=== PATIENT | female | born 1955 | race Caucasian/White ===

== ENCOUNTER 2020-08-30 07:50 | Outpatient (REF) | payer OTHER, SELFPAY ==
[2020-08-30 11:14] LABS: Hematocrit 42.8 % (37-47); Hemoglobin 13.9 g/dl (12.0-16.0); Mean Corpuscular HGB Conc 32.5 g/dl (31.0-35.0); Mean Corpuscular Hemoglobin 32.3 pg (27.0-33.0); Mean Corpuscular Volume 99.3 fL (80-98); Mean Platelet Volume 11.2 fL (9.4-12.3); Platelet Count 280 X10*3/uL (160-400); Red Blood Count 4.31 X10*6/uL (4.20-5.50); Red Cell Distribution Width 11.8 % (11.0-16.0); White Blood Count 6.3 X10*3/uL (4.8-10.8)
[2020-08-30 12:00] LABS: Alanine Aminotransferase 16 U/L (0-31); Albumin Level 4.3 g/dL (3.5-5.0); Alkaline Phosphatase 51 U/L (39-117); Anion Gap 15 (12-20); Aspartate Amino Transferase 20 U/L (5-31); Bilirubin Total 0.8 mg/dL (0.0-1.0); Blood Urea Nitrogen 15 mg/dL (9-16); Calcium 9.1 mg/dL (8.4-10.2); Carbon Dioxide 26 mmol/L (22-29); Chloride 103 mmol/L (96-108); Cholesterol 198 mg/dL; Estimated Glomerular Filt Rate > 60; Glucose Fasting 92 mg/dL (60-99); HDL Cholesterol 61 mg/dL; LDL Cholesterol Calculated 121 mg/dl; Potassium 4.9 mmol/l (3.3-5.1); Sodium 139 mmol/L (135-145); Total Protein 7.4 g/dL (6.5-8.0); Triglycerides 84 mg/dL
[2020-08-30 12:11] LABS: Vitamin D 25-OH Total 25.6 ng/mL (>30)
== END 2020-08-30 07:51 | disposition home or self-care (01) ==
LOC: HO.MANLDS 07:50
PROVIDERS: PCP Internal Medicine; Visit Provider Internal Medicine
DX: I10 Essential (primary) hypertension (principal)
CPT/HCPCS: 36415; 80053; 80061; 82306; 85027

== ENCOUNTER 2022-06-26 13:32 | Outpatient (REF) | payer OTHER, SELFPAY ==
[2022-06-26 18:12] LABS: MANUAL DIFF FLAG NO
[2022-06-26 18:14] LABS: Basophils Absolute Auto 0.1 X10*3/uL (0.0-0.2); Eosinophils Absolute Auto 0.2 X10*3/uL (0.0-0.4); Eosinophils Percent Auto 1.7 % (0-4); Hematocrit 41.1 % (37.0-47.0); Hemoglobin 13.6 g/dl (12.0-16.0); Imm Gran Abs Auto 0.02 X10*3/uL (0.00-0.03); Imm Gran Pct Auto 0.2 % (0.0-0.4); Lymphocytes Absolute Auto 2.4 X10*3/uL (1.2-4.9); Lymphocytes Percent Auto 26.5 % (20-40); Mean Corpuscular HGB Conc 33.1 g/dl (31.0-35.0); Mean Corpuscular Hemoglobin 32.9 pg (27.0-33.0); Mean Corpuscular Volume 99.5 fL (80.0-98.0); Mean Platelet Volume 11.8 fL (9.4-12.3); Monocytes Absolute Auto 0.8 X10*3/uL (0.1-1.2); Monocytes Percent Auto 8.8 % (2-11); Neutrophils Absolute Auto 5.5 x10*3/uL (2.0-8.3); Neutrophils Percent Auto 61.8 % (45-73); Platelet Count 261 X10*3/uL (160-400); Red Blood Count 4.13 X10*6/uL (4.20-5.50); Red Cell Distribution Width 11.7 % (11.0-16.0); White Blood Count 8.9 X10*3/uL (4.8-10.8)
[2022-06-26 21:05] LABS: Alanine Aminotransferase 16 U/L (0-31); Albumin Level 4.5 g/dL (3.5-5.0); Alkaline Phosphatase 56 U/L (39-117); Anion Gap 17 (12-20); Aspartate Amino Transferase 20 U/L (5-31); Bilirubin Total 0.4 mg/dL (0.0-1.0); Blood Urea Nitrogen 18 mg/dL (9-16); Calcium 9.8 mg/dL (8.4-10.2); Carbon Dioxide 25 mmol/L (22-29); Chloride 103 mmol/L (96-108); Estimated Glomerular Filt Rate > 60; Glucose Random 83 mg/dL (60-115); Potassium 4.1 mmol/L (3.3-5.1); Sodium 141 mmol/L (135-145); Total Protein 7.5 g/dL (6.5-8.0)
[2022-06-26 21:26] LABS: Thyroid Stimulating Hormone 1.59 uIU/mL (0.32-4.0)
[2022-06-26 22:10] LABS: Free T4 (Free Thyroxine) 0.93 ng/dL (0.71-1.85)
== END 2022-06-26 13:33 | disposition home or self-care (01) ==
LOC: HO.MANLDS 13:32
PROVIDERS: Visit Provider Internal Medicine
DX: R63.4 Abnormal weight loss (principal)
CPT/HCPCS: 36415; 80053; 84439; 84443; 85025

== ENCOUNTER 2022-11-01 09:53 | Outpatient (REF) | payer BC, SELFPAY ==
[2022-11-01 11:25] LABS: MANUAL DIFF FLAG NO
[2022-11-01 11:54] LABS: Basophils Absolute Auto 0.1 X10*3/uL (0.0-0.2); Eosinophils Absolute Auto 0.2 X10*3/uL (0.0-0.4); Eosinophils Percent Auto 2.3 % (0-4); Hemoglobin 14.5 g/dl (12.0-16.0); Imm Gran Abs Auto 0.01 X10*3/uL (0.00-0.03); Imm Gran Pct Auto 0.1 % (0.0-0.4); Lymphocytes Absolute Auto 1.9 X10*3/uL (1.2-4.9); Lymphocytes Percent Auto 27.5 % (20-40); Mean Corpuscular Hemoglobin 32.8 pg (27.0-33.0); Mean Corpuscular Volume 99.5 fL (80.0-98.0); Mean Platelet Volume 11.5 fL (9.4-12.3); Monocytes Absolute Auto 0.7 X10*3/uL (0.1-1.2); Monocytes Percent Auto 9.8 % (2-11); Neutrophils Absolute Auto 4.1 x10*3/uL (2.0-8.3); Neutrophils Percent Auto 59.3 % (45-73); Platelet Count 259 X10*3/uL (160-400); Red Blood Count 4.42 X10*6/uL (4.20-5.50); Red Cell Distribution Width 11.9 % (11.0-16.0)
[2022-11-01 12:40] LABS: Alanine Aminotransferase 16 U/L (0-31); Albumin Level 4.5 g/dL (3.5-5.0); Alkaline Phosphatase 56 U/L (39-117); Anion Gap 12 (12-20); Aspartate Amino Transferase 20 U/L (5-31); Bilirubin Total 1.1 mg/dL (0.0-1.0); Blood Urea Nitrogen 15 mg/dL (9-16); Calcium 9.8 mg/dL (8.4-10.2); Carbon Dioxide 30 mmol/L (22-29); Chloride 101 mmol/L (96-108); Cholesterol 217 mg/dL; Estimated Glomerular Filt Rate 54; Glucose Random 94 mg/dL (60-115); HDL Cholesterol 68 mg/dL; LDL Cholesterol Calculated 128 mg/dl; Potassium 5.2 mmol/L (3.3-5.1); Sodium 138 mmol/L (135-145); Total Protein 7.5 g/dL (6.5-8.0); Triglycerides 105 mg/dL
[2022-11-01 12:43] LABS: Vitamin D 25-OH Total 19.3 ng/mL (>30)
== END 2022-11-01 09:54 | disposition home or self-care (01) ==
LOC: HO.MANLDS 09:53
PROVIDERS: Visit Provider Internal Medicine
DX: I10 Essential (primary) hypertension (principal); E55.9 Vitamin D deficiency, unspecified
CPT/HCPCS: 36415; 80053; 80061; 82306; 85025

== ENCOUNTER 2024-09-30 09:12 | Outpatient (REF) | payer BC, SELFPAY ==
--- OUTSIDE RECORDS SUMMARY | 2024-09-30 10:04 | XMS_ITS | Data Portability ---
Author Organization [facility] Address [address] [place] [address] Assessment Encounter Date Assessment Date Assessment LastModified by Organization Details LastModified Time 01/13/2022 01/13/2022 [id number] [place] [id number] (ADVISOR CONSULTANT) MDM MODERATE MUST MEET 2 OUT OF 3 ELEMENTS: PROBLEMS, DATA OR RISK ELEMENT 1: PROBLEMS ADDRESSED 1 OR MORE CHRONIC ILLNESS WITH EXACERBATION OR 2 OR MORE STABLE CHRONIC ILLNESSES OR 1 UNDIAGNOSED NEW PROBLEM OR 1 ACUTE ILLNESS W/SYMPTOMS OR 1 ACUTE COMPLICATED INJURY ELEMENT 2: DATA MUST MEET 1 OF 3 CATEGORIES CATEGORY 1: REVIEW OF PRIOR EXTERNAL NOTES, REVIEW OF RESULTS, ORDERING OF EACH TEST, ASSESSMENT REQUIRING INDEPENDENT HISTORIAN OR CATEGORY 2: INDEPENDENT INTERPRETATION OF TESTS BY ANOTHER PHYSICIAN OR SPECIALIST OR CATEGORY 3: DISCUSSION OF MGT OR TEST INTERPRETATION W/EXTERNAL PHYSICIAN OR SPECIALIST ELEMENT 3: RISK RISK OF COMPLICATIONS AND/OR MORBIDITY OR MORTALITY OF PATIENT MANAGEMENT PROVIDER MUST THOROUGHLY DOCUMENT EACH ELEMENT THAT IS COVERED Not available 01/13/2022 15:39:57 01/07/2024 01/07/2024 [id number] [place] [id number] (ADVISOR CONSULTANT) : MDM LOW MUST MEET 2 OF 3 ELEMENTS: PROBLEMS, DATA OR RISK ELEMENT 1: PROBLEMS ADDRESSED (LOW): 2 OR MORE SELF-LIMITED OR MINOR PROBLEMS OR 1 STABLE CHRONIC ILLNESS OR 1 ACUTE UNCOMPLICATED ILLNESS OR INJURY ELEMENT 2: DATA TO BE REVISED AND ANALYZED (LOW) MUST MEET 1 OF 2 CATEGORIES: CATEGORY 1. REVIEW OF PRIOR EXTERNAL NOTES/RESULTS, ORDERING OF TEST(S) CATEGORY 2. ASSESSMENT REQUIRING INDEPENDENT HISTORIAN(S) INCLUDE WHO THE HISTORIAN IS AND RELATION TO PT AND WHY PT IS UNABLE TO GIVE COMPLETE HISTORY ELEMENT 3: RISK (LOW) RISK OF COMPLICATIONS AND/OR MORBIDITY OR MORTALITY OF PATIENT MANAGEMENT PROVIDER MUST THOROUGHLY DOCUMENT ALL OF THE ELEMENTS COVERED Not available 01/07/2024 14:47:15 08/04/2024 08/04/2024 [id number] [place] [id number] (ADVISOR CONSULTANT) MDM MODERATE MUST MEET 2 OUT OF 3 ELEMENTS: PROBLEMS, DATA OR RISK ELEMENT 1: PROBLEMS ADDRESSED 1 OR MORE CHRONIC ILLNESS WITH EXACERBATION OR 2 OR MORE STABLE CHRONIC ILLNESSES OR 1 UNDIAGNOSED NEW PROBLEM OR 1 ACUTE ILLNESS W/SYMPTOMS OR 1 ACUTE COMPLICATED INJURY ELEMENT 2: DATA MUST MEET 1 OF 3 CATEGORIES CATEGORY 1: REVIEW OF PRIOR EXTERNAL NOTES, REVIEW OF RESULTS, ORDERING OF EACH TEST, ASSESSMENT REQUIRING INDEPENDENT HISTORIAN OR CATEGORY 2: INDEPENDENT INTERPRETATION OF TESTS BY ANOTHER PHYSICIAN OR SPECIALIST OR CATEGORY 3: DISCUSSION OF MGT OR TEST INTERPRETATION W/EXTERNAL PHYSICIAN OR SPECIALIST ELEMENT 3: RISK RISK OF COMPLICATIONS AND/OR MORBIDITY OR MORTALITY OF PATIENT MANAGEMENT PROVIDER MUST THOROUGHLY DOCUMENT EACH ELEMENT THAT IS COVERED Not available 08/04/2024 13:40:53 09/08/2024 09/08/2024 [id number] [place] [id number] (ADVISOR CONSULTANT) MDM MODERATE MUST MEET 2 OUT OF 3 ELEMENTS: PROBLEMS, DATA OR RISK ELEMENT 1: PROBLEMS ADDRESSED 1 OR MORE CHRONIC ILLNESS WITH EXACERBATION OR 2 OR MORE STABLE CHRONIC ILLNESSES OR 1 UNDIAGNOSED NEW PROBLEM OR 1 ACUTE ILLNESS W/SYMPTOMS OR 1 ACUTE COMPLICATED INJURY ELEMENT 2: DATA MUST MEET 1 OF 3 CATEGORIES CATEGORY 1: REVIEW OF PRIOR EXTERNAL NOTES, REVIEW OF RESULTS, ORDERING OF EACH TEST, ASSESSMENT REQUIRING INDEPENDENT HISTORIAN OR CATEGORY 2: INDEPENDENT INTERPRETATION OF TESTS BY ANOTHER PHYSICIAN OR SPECIALIST OR CATEGORY 3: DISCUSSION OF MGT OR TEST INTERPRETATION W/EXTERNAL PHYSICIAN OR SPECIALIST ELEMENT 3: RISK RISK OF COMPLICATIONS AND/OR MORBIDITY OR MORTALITY OF PATIENT MANAGEMENT PROVIDER MUST THOROUGHLY DOCUMENT EACH ELEMENT THAT IS COVERED Not available 09/08/2024 11:40:10 Plan of Treatment Reminders Order Date Submit Date Provider Last Modified By Organization Details Last Modified Time Details Appointments MEDICARE ANNUAL WELLNESS 2024 09:00A M DR BRIDGES Not available Not available Not available Lab None recorded. Referral None recorded. Procedures None recorded. Surgeries None recorded. Imaging US, echocardi ogram, transthor acic, complete, w/ color flow 2024 025 [facility], [address] [facility], [place], [address], 09/26/2024 10:07:10 Medication Orders halobetas ol propionat e 0.05 % topical cream 2023 024 [facility]/Pharmacy #[id number], [address] [place], [address], 08/04/2024 13:40:13 metoprolo l succinate ER 50 mg tablet,ex tended release 24 hr 2023 024 [facility]/Pharmacy #5, [address] [place], [address], 01/07/2024 14:50:31 Patient TargetsNo targets recorded. Patient Instructions Encounter Date Encounter Id Patient Instructions Last Modified By Organization Details Last Modified Time 01/13/2022 [id number] smoking cessatio n counseling, greater than 3 minutes up to 10 minutes* [email or web address] Not available 01/23/2022 09:13:25 History: Type of tobacco: {{Cigarettes Pipe Cigars Smokeless }} How many years? {{5 10 15 20 or more}} Packs per day: {{1 2 3}} Approx date of last quit attempt: {{1 2 3 4 5 Month s ago years ago}} Medication used in previous quit attempt: {{Patch Inhaler G um Lozenge Buprop ion Varenicline N one}} Readiness to Quit: {{Not interested in quitting Thinking about quitting at some point Ready to quit}} Assessment and Plan: Educational materials provided: {{Prescription quit smoking}} {{Patient specific education}} Counseled for second hand smoke Counseling notes: {{}} Counseling: Counseled for: {{3 to 10mins 10+mins}} Not available 01/13/2022 15:44:26 01/07/2024 [id number] palpitations: care instructions Not available 01/07/2024 14:47:48 Reason for Referral None Reported. Results Created Date Observation Date Name Description Value Unit Range Abnormal Flag Note LastModifiedBy Organization Detail LastModifiedTime 01/14/2001/13/2022 MAMMO , scree vinayak, digit al, bilat eral No observ ation record ed. BARCODE Not Available 2021 15:22:41 Result Notes None recorded. Problems Name Problem SNOMED Code Status Onset Date Resolution Date Notes Provider Name and Address Organization Details Recorded Time Anxiety 28831664 Active 2020 Not Available [facility] 3 12:35:23 Weight loss 50241062 Active 2021 Not Available [facility] 3 12:35:23 Osteopenia 857130467 Active 2017 Not Available [facility] 3 12:35:23 Hypertensi ve disorder 95100625 Active 2017 Not Available [facility] 3 12:35:23 Palpitatio ns 11790400 Active 2017 Not Available [facility] 3 12:35:23 Tobacco user 384962945 Active 2017 Not Available [facility] 3 12:35:23 Eczema 98426178 Active 2023 Buzz Bridges [address], [address], [facility] 4 13:38:38 Early systolic murmur 36985019 Active 2024 Buzz Bridges, DO [address] [place] [address], [phone], [facility] 5 11:40:24 Problem Notes None recorded. Procedures Surgical History None recorded. Imaging Results Imaging Date Name Status LastModified by Organiz ation Details LastModified Time 01/13/2022 MAMMO, screening, digital, bilateral completed BARCODE Information not available 01/13/2022 15:22:41 Procedure Notes None recorded. Medical Equipment None Reported. Allergies No known drug allergies Medications Name Sig Start Date Stop Date Status Note LastModified by Organization Details LastModified Time amoxicillin 500 mg capsule 02/10 completed Not Available Not Available Not Available metoprolol succinate ER 50 mg tablet,exte nded release 24 hr TAKE 1 TABLET BY MOUTH EVERY DAY active Not Available Not Available No t Available alclometaso ne 0.05 % topical cream APPLY TO AFFECTED AREAS ON FACE TWICE A DAY FOR 2 WEEKS. active Not Available Not Available No t Available lorazepam 0.5 mg tablet TAKE 1 TABLET BY MOUTH EVERY DAY NEEDED active Not Available Not Available No t Available triamcinolo ne acetonide 0.025 % topical cream 01/13 completed Not Available Not Available Not Available benzonatate 100 mg capsule Take 1 capsule 3 times a day by oral route for 10 days. 02/10 completed Not Available Not Available Not Available metoprolol tartrate 50 mg tablet 1 po bid 05/31 completed Not Available Not Available Not Available halobetasol propionate 0.05 % topical cream APPLY A THIN LAYER TO THE AFFECTED AREA(S) BY TOPICAL ROUTE ONCE DAILY DO NOT EXCEED 50 GRAMS PER WEEK OR 2 WEEKS DURATION active Not Available Not Available No t Available metoprolol succinate ER 25 mg tablet,exte nded release 24 hr Take 1 tablet every day by oral route. 02/10 completed Not Available Not Available Not Available alclometaso ne 0.05 % topical ointment APPLY TO AFFECTED AREAS ON FACE TWICE A DAY FOR 2 WEEKS. active Not Available Not Available No t Available methylpredn isolone 4 mg tablets in a dose pack 05/31 completed Not Available Not Available Not Available ketoconazol e 2 % topical cream APPLY TO AFFECTED AREAS OF FACE TWICE DAILY FOR 2 WEEKS. active Not Available Not Available No t Available amoxicillin 875 mg-potassiu m clavulanate 125 mg tablet 02/10 completed Not Available Not Available Not Available metoprolol tartrate 25 mg tablet take 1 tablet by mouth twice a day 02/10 completed Not Available Not Available Not Available chlorhexidi ne gluconate 0.12 % mouthwash 02/10 completed Not Available Not Available Not Available Vitamin D 1,000mg daily 11/08 completed Not Available Not Available Not Available Vitals Date Recorded Body height Heart rate Oxygen saturation Oxygen saturation in Arterial blood by Pulse oximetry Body mass index (BMI) Body weight Systolic blood pressure Diastolic blood pressure Provider Name and Address Organization Details Last Updated DateTime 2 160.02 cm 67 /min 99 % 99 % 23.4 kg/m2 23724.9 1 g 122 mm[Hg] 84 mm[Hg] Buzz Bridges, DO [address] [place], [address] [place] [address] Internal [facility] 2 15:08:30 Date Recorded Body height Body mass index (BMI) Body weight Heart rate Oxygen saturation Oxygen saturation in Arterial blood by Pulse oximetry Systolic blood pressure Diastolic blood pressure Provider Name and Address Organization Details Last Updated DateTime 3 160.02 cm 24.4 kg/m2 84800.6 7 g 61 /min 99 % 99 % 122 mm[Hg] 78 mm[Hg] Buzz Bridges DO [address] [place] [address], [phone], [facility] 3 15:49:24 Date Recorded Body weight Heart rate Oxygen saturation Oxygen saturation in Arterial blood by Pulse oximetry Systolic blood pressure Diastolic blood pressure Provider Name and Address Organization Details Last Updated DateTime 4 73664.2 9 g 74 /min 96 % 96 % 120 mm[Hg] 80 mm[Hg] Betty Humphrey [facility] 4 14:31:27 Date Recorded Body height Body mass index (BMI) Body weight Heart rate Oxygen saturation Oxygen saturation in Arterial blood by Pulse oximetry Systolic blood pressure Diastolic blood pressure Provider Name and Address Organization Details Last Updated DateTime 4 160.02 cm 25.5 kg/m2 08972.3 g 67 /min 99 % 99 % 128 mm[Hg] 82 mm[Hg] Washington Costa [facility] 4 13:29:46 Date Recorded Body height Body mass index (BMI) Body weight Heart rate Oxygen saturation Oxygen saturation in Arterial blood by Pulse oximetry Systolic blood pressure Diastolic blood pressure Provider Name and Address Organization Details Last Updated DateTime 5 160.02 cm 25.6 kg/m2 15278.7 4 g 65 /min 98 % 98 % 122 mm[Hg] 66 mm[Hg] Washington Costa [facility] 5 10:57:39 Social History Question Answer Notes LastModified by Organizat ion Details LastModified Time Tobacco Smoking Status Former Smoker 4-5 ciggs per day Buzz Bridges, [address] [place] [address], [phone], [facility] 05/31/2021 16:28:01 What Was The Date Of Your Most Recent Tobacco Screening? 09/08/2024 [email or web address] Information not available 09/08/2024 Do You Or Have You Ever Used Any Other Forms Of Tobacco Or Nicotine? No Information not available 11/08/2022 Sex: Unknown Functional Status None recorded. Mental Status None recorded. Family History Nothing Reported. Medical History No medical history recorded. Gynecological HistoryNo gynecological history recorded. Obstetrics History GPAL:G 0 P 0 0 0 0 Immunizations Vaccine Type Date Status Note Provider Nam e and Address Organization Details Recorded Time Influenza, split virus, quadrivalent, preservative 1 completed Buzz Bridges DO [address] [place] [address], [address], [facility] 05/31/2021 16:27:05 zoster, unspecified formulation 1 completed Buzz Bridges DO [address] [place] [address], [address], [facility] 05/31/2021 16:27:27 Influenza, adjuvanted, trivalent, PF 8 completed Karmen Smith [facility] 05/24/2018 16:46:46 influenza, unspecified formulation 3 completed Hina Murray [facility] 06/18/2023 09:04:40 SARS-COV-2 (COVID-19) vaccine, UNSPECIFIED 3 completed Hina Murray [facility] 06/18/2023 09:04:47 Influenza, split virus, quadrivalent, preservative 0 completed Marion Weeks [facility] 06/21/2020 16:18:10 COVID-19, mRNA, LNP-S, PF, 100 mcg/0.5mL dose or 50 mcg/0.25mL dose 1 [facility] 14:42:48 COVID-19, mRNA, LNP-S, PF, 100 mcg/0.5mL dose or 50 mcg/0.25mL dose 1 [facility] 14:42:56 Past Encounters Encounter ID Performer Location Encounter Start Date Encounter Closed Date Diagnosis/Indication Diagnosis SNOMED-CT Code Diagnosis ICD10 Code Diagnosis Note [id number] Buzz Borrero Yen [facility] [address] [facility] [address] 11/16/2017 13:29:14 11/16/2017 16:01:22 Hypertensive disorder 61415310 I10 stable overall doing well no major problems bps at home and work are good Tobacco user 977033742 Z 72.0 long discussion re tobacco use Osteopenia 448962808 M85 .9 coming up bone density in january 88697545 F41.9 [id number] Buzz Borrero Yen [facility] [address] [facility],[place] [address] 05/24/2018 16:17:34 05/27/2018 10:29:39 Tobacco user 782981924 Z72.0 long discussion re tobacco use Hypertensive disorder 38 757888 I10 stable overall doing well no major problems bps at home and work are good Upper resp iratory infection 92211535 J06.9 use tessalon [id number] Buzz Borrero Yen [facility] [address] [facility] [facility] [address] 02/10/2019 16:10:54 02/10/2019 17:19:27 Hypertensive disorder 76974818 I10 stable overall doing well no major problems bps at home and work are good will order some lab next visit Tobacco user 672097390 Z 72.0 long discussion re tobacco use not interested in quittin [id number] Buzz Gissell Bridges [facility] [address] [facility] [address] 09/16/2019 16:05:41 09/16/2019 16:41:26 Hypertensive disorder 28264760 I10 BP is well controlled w metoprolol Screening for malignant neoplasm of colon 598384057 Z12.11 Is due - will call them and see if she needs referral Insomnia 685571109 F51.0 9 Well controlled with loraz less than 1x/mo [id number] Buzz BishopBarry Bridges [facility] [address] [facility] [address],[place] [facility] [address] 06/21/2020 16:07:12 06/22/2020 08:59:03 Hypertensive disorder 62136686 I10 BP is well controlled w metoprolol Insomnia 520698674 F51.0 9 Well controlled with loraz less than 1x/mo Osteopenia 550828954 M85 .9 coming up bone density in january of 2021 cont vit d Screening for malignant neoplasm of colon 421909326 Z12.11 Is due - [id number] Buzz Bridges [facility] [address] [facility] [address] 05/31/2021 16:07:14 05/31/2021 16:52:24 Hypertensive disorder 27160729 I10 BP is well controlled w metoprolol Anxiety 24437370 F41.9 uses lorazepam occasional ly Insomnia 304902495 F51.0 9 Well controlled with loraz less than 1x/mo [id number] Buzz Bridges [facility] [address] [facility] [address] 01/13/2022 14:59:10 01/13/2022 17:02:48 Hypertensive disorder 11373739 I10 BP is well controlled w metoprolol Tobacco user 599394637 Z 72.0 long discussion re tobacco use not interested in quittin Anxiety 15493609 F41.9 uses lorazepam occasional ly but overall she is doing much better Active or passive immunization 504705168 Z23 patient advised she is due for tdap & shingles will get second [id number] Buzz Bridges [facility] Medicine [address] [facility] [address] 11/08/2022 15:17:57 11/08/2022 16:59:49 Hypertensive disorder 11487273 I10 BP is well controlled w metoprolol Active or passive immunization 079258569 Z23 patient advised she is due for tdap & shingles will get second Adult heal th examination 897832705 Z00.00 [id number] Buzz Bridges [facility] [address] [facility] [address],[place] [address] 01/07/2024 14:18:13 01/07/2024 14:57:47 Depression screening 791070652 Z13.31 PHQ9 NEGATIVE Hypertensive disorder 38 019588 I10 BP is well controlled w metoprolol Osteopenia 049528340 M85 .9 coming up bone density in january of 2021 cont vit d Palpitations 63438974 R0 0.2 asymptomat ic [id number] Buzz Bridges [facility] Medicine [address] [facility] [address],[place] [address] 08/04/2024 13:23:18 08/04/2024 13:46:54 Hypertensive disorder 44779315 I10 BP is well controlled w metoprolol Eczema 86112967 L30.9 on fingers [id number] Buzz Borrero Yen [facility] [address] [facility] [address],[place] [address] 09/08/2024 10:51:24 09/08/2024 11:54:40 Hypertensive disorder 57924453 I10 BP is well controlled w metoprolol Early systolic murmur 89 091340 R01.1 Health Concerns Section Related Observation LastModified by Organization Detai ls LastModified Time None Recorded Concern Status LastModified by Organization Details LastModified Time None Recorded Advance Directives Directive None Recorded Payers Encounter Date Sequence Insurance Name Policy Number Policy Moffett Covered Member ID Moffett Member ID Guarantor Name 01/13/2022 1 [place] [id number] Alta C Archambeault [id number] Alta Archambeault 11/08/2022 1 [place] [id number] Alta C Archambeault [id number] Alta Archambeault 01/07/2024 1 [place] PPO) [id number] Alta Archambeault [id number] Alta Archambeault 08/04/2024 1 [place]) [id number] Alta Archambeault [id number] Alta Archambeault 09/08/2024 1 [place]PO) [id number] [facility] Archambeault [id number] Alta [facility] Notes Date Note Type Note Provider Name and Address Organization Details Recorded Time 2 text/htm l Hypertension F/UReported bypatient.Medications:ta audrey medications as directed; no side effects from medication Lifestyle:regular exercise; limiting/avoiding salt; compliant with low salt diet Associated Symptoms:no dizziness; no lightheadedness; no chest pain; no shortness of breath; no palpitations; no edema; no calf pain with exertion; no headache here for rechk and is feeling well and not having any cp or sobsstill quit the tobacco and is sleeping okappetite okno cp \no prob with med Buzz Bridges [address], [address], [facility] 01/13/2022 15:44:59 3 text/htm l Annual WellnessReported bypatient.Diet and Nutrition:healthy diet Fracture Risk:no history of fractures; no recent explained fracture; no sudden unexplained fractures; no previous musculoskeletal injuries Physical Activity:exercises on a regular basis; recent increase in physical activity; good physical condition Additional Lifestyle Factors:no tobacco use; no alcohol intake; stopped drinking alcohol Depression Risk:never feels sad, empty, or tearful; no loss of interest in activities; no significant changes in weight; no sleep disturbances or insomnia; no agitation; no loss of energy; no feelings of worthlessness or guilt; no thoughts of suicide; no history of depression; no history of mood disorders Hearing:no loss of hearing Vision:no vision problemsNotes:doing well overall no major issuesbowels okbladder okno cp nosobappetite ok 'sleep Buzz Bridges DO [address] [place] [address], [address], [facility] 11/08/2022 16:30:52 4 text/htm l Care Management - HypertensionReported bypatient.Self Care:not under emotional stress Severity:symptoms are improving; does not interfere with daily activities Associated Symptoms:no dizziness; no lightheadedness; no chest pain; no shortness of breath; no palpitations; no edema; no calf muscle cramps; no blurred vision; no confusion; no headaches; no fatigueNotes:walking daily with the dog here for her med chk and relates that she is doing well and feels good except for right foot plantar fasciitisusing insertno palpitations no cp no sob bowelsbladder goodhas had recent ob gyn physician assistant exam all good bone density shows osteopinia and mammogram was negative taking ca with vit D Buzz Borrero Yen, DO [address] [place] [address], [address], [facility] 01/07/2024 14:52:21 4 text/htm l Care Management - HypertensionReported bypatient.Self Care:not under emotional stress Severity:symptoms are improving; does not interfere with daily activities Associated Symptoms:no dizziness; no lightheadedness; no chest pain; no shortness of breath; no palpitations; no edema; no calf muscle cramps; no blurred vision; no confusion; no headaches; no fatigue here for rechk and is doing good no major issues and has been having a prob with a rash on fingers of hands itchy scaly and uncomfortable Buzz Borrero Yen, DO [address] [place] [address], [address], [facility] 08/04/2024 13:45:20 5 text/htm l was told by ob gyn physician assistant that she had a systolic heart murmur and told her that it could lead to heart failure etc pt nervous about thisdoes not have any hemodynamic physical signs or symptomsno cp no sob Buzz Borrero Yen, DO [address] [place] [address], [address], [facility] 09/08/2024 11:45:53 OBGyn Episode No OBEpisode recorded.
--- OUTSIDE RECORDS SUMMARY | 2024-09-30 10:04 | XMS_ITS ---
Author Organization [facility] [employer] [facility] Address [address] [address] Care Team Providers Care Director Of Corporate Strategy Name Role Phone YOLI BRIDGES Primary Care Provider Nataly Coyle Unavailable [phone] Allergies No Known Allergies REASON FOR VISIT INTERVAL BREAST AND PELVIC Medications Medication SIG (Take, Route, Frequency, Duration) Notes Start Date End Date Status Vitamin C Active LORazepam 0.5MG 1 ORAL as needed 11/06/2013 Active Metoprolol Succinate 50MG 1 ORAL daily for -3 09/06 Active Social History Tobacco Use: Social History Observation Description Date Details (start date - stop date) Former Smoker NA - NA AUDIT-C (Standard) Question Answer Notes Did you have a drink contain ing alcohol in the past year? Yes How often did you have a dri nk containing alcohol in the past year? Never (0 point) How many drinks did you have on a typical day when you were drinking in the past year? 1 or 2 drinks (0 point) How often did you have six o r more drinks on one occasion in the past year? 2 to 3 times per week (3 points) Points 3 Interpretation Positive Tobacco Control (Standard) Question Answer Notes Tobacco use: Former smoker How long has it been since you last smoked? Grea ter than 10 years Vital Signs Temperature 97.4 degrees Fahrenheit 09/02/19 25 Blood pressure systolic 118 mm Hg 09/02/19 25 Blood pressure diastolic 72 mm Hg 025 Height 63 in 09/02/2024 Weight 136 lbs 09/02/2024 BMI 24.09 kg/m2 09/02/2024 Encounters Encounter Location Date Provider Diagnosis [facility] [employer] [address] 09/02/2024 Nataly Armenta Encounter for gynecological examination (general) (routine) with abnormal findings Z01.411 ; Encounter for screening mammogram for malignant neoplasm of breast Z12.31 ; Other specified disorders of bone density and structure, multiple sites M85.89 ; Postmenopausal atrophic vaginitis N95.2 and Dense breasts, unspecified R92.30 Assessments Encounter Date Diagnosis (ICD Code) Assessment Notes Treatment Notes Treatment Clinical Notes Section Notes 09/02/2024 Encounter for gynecological examination (general) (routine) with abnormal findings (ICD-10 - Z01.411) NO PAP TEST, INTERVAL VISIT. PAP TEST IN 2025. 09/02/2024 Encounter for screening mammogram for malignant neoplasm of breast (ICD-10 - Z12.31) 09/02/2024 Other specified disorders of bone density and structure, multiple sites (ICD-10 - M85.89) DISCUSSED OSTEOPENIA AND ITS IMPACT ON HER HEALTH. ADEQUATE CALCIUM AND VIT D. WEIGHT BEARING EXERCISES. REPEAT BMD IN 2025. 09/02/2024 Postmenopausal atrophic vaginitis (ICD-10 - N95.2) DISCUSSED FINDINGS, DX AND TX OPTIONS. PAT IS ASYMPTOMATIC. 09/02/2024 Dense breasts, unspecified (ICD-10 - R92.30) DISCUSSED DENSE BREASTS ON MAMMOGRAM AND ITS IMPLICATIONS. 3D MAMMOGRAMS WERE RECOMMENDED. Plan Of Treatment Treatment Notes Assessment Notes Encounter for gynecological examination (general) (routine) with abnormal findings NO PAP TEST, INTERVAL VISIT. PAP TEST IN 2025. Other specified disorders of bone density and structure, multiple sites DISCUSSED OSTEOPENIA AND ITS IMPACT ON HER HEALTH. ADEQUATE CALCIUM AND VIT D. WEIGHT BEARING EXERCISES. REPEAT BMD IN 2025. Postmenopausal atrophic vaginitis DISCUSSED FINDINGS, DX AND TX OPTIONS. PAT IS ASYMPTOMATIC. Dense breasts, unspecified DISCUSSED DENSE BREASTS ON MAMMOGRAM AND ITS IMPLICATIONS. 3D MAMMOGRAMS WERE RECOMMENDED. Pending Test Test Name Order Date BONE DENSITY 09/02/2024 MM Digital Mammo Screening 09/02/2024 Next Appt Details Follow Up: 1 Year, Reason: Provider Name:Nataly summers, 09/03/2025 09:20:00 AM, [address], [address], [place], [address], Progress Notes * JASMINE MCKEONDOB:[birth year] (69 yo F)Acc No.[id number]:09/02/2024 PROGRESS NOTES Patient:?KATIE MCKEON Appointment Provider:Yuri summers M.D. :1955???Age:69 Y???Sex:Female D ate:09/02/2024 Address:[address] [place], [place] [id number] Pcp:YOLI BRIDGES Subjective: * Chief Complaints: * ???INTERVAL BREAST AND PELVI C * HPI: ???New/Follow-up Patient Consult:? PAT ENTERED MENOPAUSE IN 2004.? SHE IS NOT SEXUALLY ACTIVE. HER LAST MAMMOGRAM DONE IN AUG 2024 SHOWED DENSE BREASTS AND WAS NORMAL.? HER LIFETIME BREAST CA RISK IS 5.4%. HER LAST PAP TEST IN 2021 WAS NEGATIVE AND HPV NEGATIVE.? SHE HAS NO HX OF ABNORMAL PAP TESTS. HER LAST BMD IN 2023 SHOWED OSTEOPENIA WITH LOWEST T-SCORE OF -2.2 AT THE SPINE.? THERE HAS BEEN NO CHANGE COMPARED TO HER BMD IN 2020.? FRAX=18%/1.8%. SHE HAD A COLONOSCOPY DONE IN 2011 AND COLOGUARD TESTING IN 2019. MODERNA X 2. * ROS:?general:?no?chest pain.?no?palpitations.?no?headache.?no?cough.?no?shortness of breath.?no?fever.?no?unexplained weight loss.?no?nausea/vomiting.?no?change in bowel movements.?no blood in stool.?no?genitourinary complaints.?no?skin complaints.? * Medical History:? 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 Control:?None.?Menopause: ?Began at age: ?52 ???Colonoscopy?Cologuard 06/2020, yes, no polyps, 2011.?Bone Density:?08/14/23, 04/21/21, 05/08/17.?RETIREMENT ACTUARY HISTORY MISC.?02/03/16 Dense Breast Letter 1 Mailed to Patient. Cynthia Score 5.4%.? * OB History:?Total pregnancies?1.?Total living children?1.?NVD?1.? * Surgical History:?Colonoscop y 2011 * Hospitalization/Major Diagno stic Procedure:?1 Vaginal Delivery * Family History:?Mother: dece ased 91 yrs, Kidney Disease, broke hip in her 70s, low impact fall.?Father: 79 yrs, Asthma.?1 brother(s) - healthy. .? : Prostate Cancer. * Social History:?Tobacco Use:?Tobacco Control (Standard)?Tobacco use:?Former smoker ?How long has it been since you last smoked??Greater than 10 years ???Sexual History:?Sexual History?Had sex in the past 12 months (vaginal, oral, or anal)?: No.?Details of Sexual History?Are you sexually active??No ???Drugs/Alcohol:?Drugs?Have you used drugs other than those for medical reasons in the past 12 months??No ???Miscellaneous:?Children: yes, 1. ?Domestic violence: no. ?Exercise: yes, walking. ?Home smoke detector use: yes. ?Living with: spouse. ?Marital status: . ?Natural support system: yes. ?Occupation: Works full-time. ?Sexual abuse: no. ?Sexually active: no, monogamous relationship. ?Verbal abuse: no. ???Drug/Alcohol:?AUDIT-C (Standard)?Did you have a drink containing alcohol in the past year??Yes ?How often did you have a drink containing alcohol in the past year??Never (0 point) ?How many drinks did you have on a typical day when you were drinking in the past year??1 or 2 drinks (0 point) ?How often did you have six or more drinks on one occasion in the past year??2 to 3 times per week (3 points) ?Points?3 ?Interpretation?Positive * Medications:?TakingVitamin C LORazepam 0.5MG 30TAB 1 ORAL as needed Metoprolol Succinate 50MG 30 1 ORAL daily Taking Vitamin C Taking LORazepam 0.5MG 30TAB 1 ORAL as needed Taking Metoprolol Succinate 50MG 30 1 ORAL daily DiscontinuedVitamin D 25 MCG (1000 UT) Tablet 1 tablet Orally Once a day , Notes to Pharmacist: 1200 IU'sMedication List reviewed and reconciled with the patientDiscontinued Vitamin D 25 MCG (1000 UT) Tablet 1 tablet Orally Once a day , Notes to Pharmacist: 1200 IU'sMedication List reviewed and reconciled with the patient * Allergies:?N.K.D.A.no[Allerg ies Verified] Objective: * Vitals:?Ht: 63 in, Wt: 136 l bs, BMI:24.09Index, BP: 118/72 mm Hg, Temp: 97.4 F. * Examination: ???General Examination: ?GENERAL APPEARANCE:?in no acute distress, well developed, well nourished.?BREASTS:?normal, no dimpling, no discharge, no drainage, no masses palpable bilaterally, nontender.?RETIREMENT ACTUARY exam: ?EXTERNAL GENITALIA:?Normal female. No lesions, erythema or discharge.?VAGINA:?atrophic changes.?CERVIX:?No cervical motion tenderness, discharge or lesions.?UTERUS:?normal size, shape and consistency, normal mobility, nontender.?ADNEXA:?no masses or tenderness bilaterally.? Assessment: * Assessment: 1.?Encounter for gynecologic al examination (general) (routine) with abnormal findings - Z01.411???2.?Encounter for screening mammogram for malignant neoplasm of breast - Z12.31???3.?Other specified disorders of bone density and structure, multiple sites - M85.89???4.?Postmenopausal atrophic vaginitis - N95.2???5.?Dense breasts, unspecified - R92.30??? Plan: * Treatment: 2.?Encounter for screening m ammogram for malignant neoplasm of breast?Imaging: MM Digital Mammo Screening 3.?Other specified disorders of bone density and structure, multiple sites?Imaging: BONE DENSITY Notes: DISCUSSED OSTEOPENIA AND ITS IMPACT ON HER HEALTH. ADEQUATE CALCIUM AND VIT D. WEIGHT BEARING EXERCISES. REPEAT BMD IN 2025.?? 4.?Postmenopausal atrophic v aginitis? Notes: DISCUSSED FINDINGS, DX AND TX OPTIONS. PAT IS ASYMPTOMATIC.?? 5.?Dense breasts, unspecifie d? Notes: DISCUSSED DENSE BREASTS ON MAMMOGRAM AND ITS IMPLICATIONS. 3D MAMMOGRAMS WERE RECOMMENDED.?? * Procedure Codes:? * Follow Up:?1 Year * Images: Billing Information: * Visit Code:? * Procedure Codes:? * Sign off status: Completed true * Appointment Provider:?Nataly Armenta M.D. Date:?09/02/2024 Generated for Tyrone kulkarni/Kevon/Manuelaitting on:?09/30/2024 10:04 AM EST History and Physical Notes * HPI (History of Present Illness) Category Sub-Category Detail Notes Category Not es New/Follow-up Patient Consult PAT ENTERED MENOPAUSE IN 2004. SHE IS NOT SEXUALLY ACTIVE. HER LAST MAMMOGRAM DONE IN AUG 2024 SHOWED DENSE BREASTS AND WAS NORMAL. HER LIFETIME BREAST CA RISK IS 5.4%. HER LAST PAP TEST IN 2021 WAS NEGATIVE AND HPV NEGATIVE. SHE HAS NO HX OF ABNORMAL PAP TESTS. HER LAST BMD IN 2023 SHOWED OSTEOPENIA WITH LOWEST T-SCORE OF -2.2 AT THE [facility]. THERE HAS BEEN NO CHANGE COMPARED TO HER BMD IN 2020. FRAX=18%/1.8%. SHE HAD A COLONOSCOPY DONE IN 2011 AND COLOGUARD TESTING IN 2019. MODERNA X 2. Examination Category Sub-Category Detail Notes Category Not es General Examination GENERAL APPEARANCE: in no ac hoh distress, well developed, well nourished BREASTS: normal, no dimpling, no discharge, no drainage, no masses palpable bilaterally, nontender RETIREMENT ACTUARY exam CERVIX: No cervical motion tendernes s, discharge or lesions VAGINA: atrophic changes EXTERNAL GENITALIA: Normal female. No le sions, erythema or discharge UTERUS: normal size, shape a nd consistency, normal mobility, nontender ADNEXA: no masses or tendern ess bilaterally
--- OUTSIDE RECORDS SUMMARY | 2024-09-30 10:04 | XMS_ITS | Continuity of Care Document ---
Author Organization [place] [facility], [facility] Address [address] [place] [address] [place] [address] Assessment Encounter Date Assessment Date Assessment LastModified by Organization Details LastModified Time 09/08/2024 09/08/[address] [id number] [place] [id number] (M[address]ICIPAL [address] JUDGE) MDM MODERATE MUST MEET 2 OUT OF [...] acic, complete, w/ color flow 2024 025 [facility] Scheduling, [address] [place] [address], [id number], 09/26/2024 10:07:10 Medication Orders None recorded. Patient TargetsNo targets recorded. Patient InstructionsNo instructions recorded. Reason for Referral None Reported. Problems Name Problem SNOMED Code Status Onset Date Resolution Date Notes Provider Name and Address Organization Details Recorded Time Anxiety 67216435 Active 2020 Not Available [facility] 3 12:35:23 Weight loss 40446522 Active 2021 Not Available [facility] 3 12:35:23 Osteopenia 875999078 Active 2017 Not Available [facility] 3 12:35:23 Hypertensi ve disorder 26642482 Active 2017 Not Available [facility] 3 12:35:23 Palpitatio ns 26406850 Active 2017 Not Available [facility] 3 12:35:23 Tobacco user 550109526 Active 2017 Not Available [facility] 3 12:35:23 Eczema 65227956 Active 2023 Buzz Bridges, [address], [address], [facility] 4 13:38:38 Early systolic murmur 78620361 Active 2024 [address] Bridges [address], [address], [facility] 5 11:40:24 Problem Notes None recorded. Medical Equipment None Reported. [...] Not Available Vitals Date Recorded Body height Body mass index (BMI) Body weight Heart rate Oxygen saturation Oxygen saturation in Arterial blood by Pulse oximetry Systolic blood pressure Diastolic blood pressure Provider Name and Address Organization Details Last Updated DateTime 5 160.02 cm 25.6 kg/m2 78692.7 4 g 65 /min 98 % 98 % 122 mm[Hg] 66 mm[Hg] Washington Costa [facility] 10:57:39 Social History Question Answer Notes LastModified by Organizat ion Details LastModified Time Tobacco Smoking Status Former Smoker 4-5 ciggs per day Buzz Bridges, DO [address] [facility], [place], [address], [facility] 05/31/2021 16:28:01 What Was [...] quadrivalent, preservative 1 completed Buzz Bridges DO [address] [place] [address], [address], [facility] 05/31/2021 16:27:05 zoster, unspecified formulation 1 completed Buzz Bridges DO [address] [place] [address], [phone], [facility] 05/31/2021 16:27:27 Influenza, adjuvanted, trivalent, PF 8 completed Karmen Smith [facility] 05/24/2018 16:46:46 influenza, unspecified formulation 3 completed Hina Murray [facility] 06/18/2023 09:04:40 SARS-COV-2 (COVID-19) vaccine, UNSPECIFIED 3 completed Hina Murray [facility] 06/18/2023 09:04:47 Influenza, split virus, quadrivalent, preservative 0 completed Marion Weeks [facility] 06/21/2020 16:18:10 COVID-19, mRNA, LNP-S, PF, 100 mcg/0.5mL dose or 50 mcg/0.25mL dose 1 [facility] 14:42:48 COVID-19, mRNA, LNP-S, PF, 100 mcg/0.5mL dose or 50 mcg/0.25mL dose 1 [facility] 14:42:56 Past Encounters Encounter ID Performer Location Encounter Start Date Encounter Closed Date Diagnosis/Indication Diagnosis SNOMED-CT Code Diagnosis ICD10 Code Diagnosis Note [id number] DO [facility] [address] [facility],[place] [address] 09/08/2024 10:51:24 09/08/2024 11:54:40 Hypertensive disorder 49976806 I10 BP is well controlled w metoprolol Early systolic murmur 89 076485 R01.1 Health Concerns Section Related Observation LastModified by Organization Detai ls LastModified Time None Recorded Concern Status LastModified by Organization Details LastModified Time None Recorded Payers Encounter Date Sequence Insurance Name Policy Number Policy Moffett Covered Member ID Moffett Member ID Guarantor Name 09/08/2024 1 [facility]: MEDICARE PPO BLUE (MEDICARE REPLACEMENT PPO) [id number] [facility] [id number] [facility] Notes Date Note Type Note Provider Name a mt Address Organization Details Recorded Time 09/08/2024 text/html was told by obstetrician gynecologist that she had a systolic heart murmur and told her that it could lead to heart failure etc pt nervous about thisdoes not have any hemodynamic physical signs or symptomsno cp no sob Buzz Brigdes DO [address] [facility], [place], [address], [facility] 09/08/2024 11:45:53 OBGyn Episode No OBEpisode recorded.
--- OUTSIDE RECORDS SUMMARY | 2024-09-30 10:04 | XMS_ITS ---
Author Organization [facility] Address [address] [place] [address] Care Team Providers Care Personal Shopper Name Role Phone CYRUS YOLI Primary Care Provider Nataly Coyle Unavailable [phone] Allergies No Known Allergies REASON FOR VISIT Annual SENIOR PRICING ANALYST Physical, Annual SENIOR PRICING ANALYST Physical 60-85+ Medications Medication SIG (Take, Route, Frequency, Duration) Notes Start Date End Date Status Vitamin D 25 MCG (1000 UT) 1 tablet Orally Once a day 1200 IU's Active LORazepam 0.5MG 1 ORAL as needed 11/06/2013 Active Metoprolol Succinate 50MG 1 ORAL daily for -3 09/21/2011 Active Social History Tobacco Use: Social History Observation Description Date Details (start date - stop date) Former Smoker NA - NA Tobacco Use/Smoking Question Answer Notes Are you a former smoker How long has it been since you last smoked? 1-5 years Alcohol Screen (Audit-C) Question Answer Notes Did you have a drink contain ing alcohol in the past year? Yes How often did you have a dri nk containing alcohol in the past year? 2 to 3 times a week (3 points) How many drinks did you have on a typical day when you were drinking in the past year? 1 or 2 drinks (0 point) Points 3 Interpretation Positive Vital Signs Temperature 97.9 degrees Fahrenheit 08/29/19 24 Blood pressure systolic 116 mm Hg 08/29/19 24 Blood pressure diastolic 80 mm Hg 024 Height 63 in 08/29/2023 Weight 135 lbs 08/29/2023 BMI 23.91 kg/m2 08/29/2023 Encounters Encounter Location Date Provider Diagnosis [facility] [address] [place] [address] 08/29/2023 Nataly Armenta Encounter for gynecological examination (general) (routine) without abnormal findings Z01.419 ; Encounter for screening mammogram for malignant neoplasm of breast Z12.31 ; Other specified disorders of bone density and structure, multiple sites M85.89 and Dense breasts, unspecified R92.30 Assessments Encounter Date Diagnosis (ICD Code) Assessment Notes Treatment Notes Treatment Clinical Notes Section Notes 08/29/2023 Encounter for gynecological examination (general) (routine) without abnormal findings (ICD-10 - Z01.419) NO PAP TEST, DUE IN 2025. 08/29/2023 Encounter for screening mammogram for malignant neoplasm of breast (ICD-10 - Z12.31) REGULAR MAMMOGRAMS AND SBE'S WERE RECOMMENDED. 08/29/2023 Other specified disorders of bone density and structure, multiple sites (ICD-10 - M85.89) DISCUSSED HER LATEST BMD RESULTS AND OSTEOPENIA AND REASSURED PAT THAT THERE HAS NOT BEEN ANY SIGNIFICANT CHANGE COMPARED TO HER BMD IN 2020. ADEQUATE CALCIUM AND VITD. WEIGHT BEARING EXERCISES. REPEAT BMD IN 2025. 08/29/2023 Dense breasts, unspecified (ICD-10 - R92.30) DISCUSSED DENSE BREASTS ON MAMMOGRAM AND ITS IMPLICATIONS. 3D MAMMOGRAMS WERE RECOMMENDED. Plan Of Treatment Treatment Notes Assessment Notes Encounter for gynecological examination (general) (routine) without abnormal findings NO PAP TEST, DUE IN 2025. Encounter for screening mamm ogram for malignant neoplasm of breast REGULAR MAMMOGRAMS AND SBE'S WERE RECOMMENDED. Other specified disorders of bone density and structure, multiple sites DISCUSSED HER LATEST BMD RESULTS AND OSTEOPENIA AND REASSURED PAT THAT THERE HAS NOT BEEN ANY SIGNIFICANT CHANGE COMPARED TO HER BMD IN 2020. ADEQUATE CALCIUM AND VITD. WEIGHT BEARING EXERCISES. REPEAT BMD IN 2025. Dense breasts, unspecified DISCUSSED DENSE BREASTS ON MAMMOGRAM AND ITS IMPLICATIONS. 3D MAMMOGRAMS WERE RECOMMENDED. Pending Test Test Name Order Date MAMMOGRAM, SCREENING 08/29/2023 MM Digital Mammo Screening 08/29/2023 Next Appt Details Follow Up: 1 Year, Reason: Provider Name:Nataly summers, 09/03/2025 09:20:00 AM, [address], [address], [place], [address], Progress Notes * JASMINE MCKEONDOB:[birth year] (68 yo F)Acc No.[id number]:08/29/2023 PROGRESS NOTES Patient:?KATIE MCKEON Appointment Provider:?Nataly summers M.D. :1955???Age:68 Y???Sex:Female D ate:08/29/2023 Address:[address] [place], [place] [id number] Pcp:YOLI BRIDGES Subjective: * Chief Complaints: * ???Annual SENIOR PRICING ANALYST PhysicalAnnual SENIOR PRICING ANALYST Physical 60-85+ * HPI: ???New/Follow-up Patient Consult:? PAT ENTERED MENOPAUSE IN 2004. SHE IS NOT SEXUALLY ACTIVE. HER SUFFERS FROM PROSTATE CA. ?HER LAST MAMMOGRAM DONE IN AUG 2023 SHOWED DENSE BREASTS AND WAS NORMAL. HER LIFETIME BREAST CA RISK IS 5.4%. ?HER LAST PAP TEST IN 2021 WAS NEGATIVE AND HPV NEGATIVE. ?HER LAST BMD IN 2023 SHOWED NO CHANGE COMPARED TO HER BMD IN 2020. HER LOWEST T-SCORE WAS -2.2 AT [facility]. FRAX=18%/1.8%. ?SHE HAD COLOGUARD TESTING DONE IN 2019. WE WILL REPEAT THE TEST THIS YEAR. ?MODERNA X 4. ???Annual:? Patient presents for annual exam, ages 60-85, postmenopausal. ?General Health Maintenance:?Current breast complaints:?no breast pain, mass, discharge, or skin changes ?Urinary problems:?patient reports no urinary health problems or bowel health problems ?Calcium intake:?takes adequate calcium via diet and supplementation ?Significant SENIOR PRICING ANALYST problems:?no significant pediatric dentist symptoms or problems * ROS:?general:?no?chest pain.?no?palpitations.?no?headache.?no?cough.?no?shortness of breath.?no?fever.?no?unexplained weight loss.?no?nausea/vomiting.?no?change in bowel movements.?no blood in stool.?no?genitourinary complaints.?no?skin complaints.? * Medical History:? 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 Control:?None.?Menopause: ?Began at age: ?52 ???Colonoscopy?Cologuard 06/2020, yes, no polyps, 2011.?Bone Density:?04/21/21, 05/08/17.?SENIOR PRICING ANALYST HISTORY MISC.?02/03/16 Dense Breast Letter 1 Mailed to Patient. Cynthia Score 5.4%.? * OB History:?Total pregnancies?1.?Total living children?1.?NVD?1.? * Surgical History:?Colonoscop y 2011 * Hospitalization/Major Diagno stic Procedure:?1 Vaginal Delivery * Family History:?Mother: dece ased 91 yrs, Kidney Disease, broke hip in her 70s, low impact fall.?Father: 79 yrs, Asthma.?1 brother(s) - healthy. .? : Prostate Cancer. * Social History:?Tobacco Use:?Tobacco Use/Smoking?Are you a?former smoker ?How long has it been since you last smoked??1-5 years ???Sexual History:?Sexual History?Had sex in the past 12 months (vaginal, oral, or anal)?: No.?Details of Sexual History?Are you sexually active??No ???Drugs/Alcohol:?Drugs?Have you used drugs other than those for medical reasons in the past 12 months??No ?Alcohol Screen (Audit-C)?Did you have a drink containing alcohol in the past year??Yes ?How often did you have a drink containing alcohol in the past year??2 to 3 times a week (3 points) ?How many drinks did you have on a typical day when you were drinking in the past year??1 or 2 drinks (0 point) ?Points?3 ?Interpretation?Positive ???Miscellaneous:?Children: yes, 1. ?no Domestic violence. ?Exercise: yes, walking. ?Home smoke detector use: yes. ?Living with: spouse. ?Marital status: . ?Natural support system: yes. ?Occupation: Works full-time. ?no Sexual abuse. ?no Sexually active, monogamous relationship. ?no Verbal abuse. * Medications:?TakingLORazepam 0.5MG 30TAB 1 ORAL as neededMetoprolol Succinate 50MG 30 1 ORAL dailyVitamin D 25 MCG (1000 UT) Tablet 1 tablet Orally Once a day, Notes: 1200 IU'sMedication List reviewed and reconciled with the patientTaking LORazepam 0.5MG 30TAB 1 ORAL as neededTaking Metoprolol Succinate 50MG 30 1 ORAL dailyTaking Vitamin D 25 MCG (1000 UT) Tablet 1 tablet Orally Once a day, Notes: 1200 IU'sMedication List reviewed and reconciled with the patient * Allergies:?N.K.D.A.no[Allerg ies Verified] Objective: * Vitals:?Ht: 63 in, Wt: 135 l bs, BMI:23.91 Index, BP: 116/80 mm Hg, Temp: 97.9 F. * Examination: ???General Exam: ?CONSTITUTIONAL:?NECK/THYROID:?RESPIRATORY:?Auscultation: clear to auscultation bilaterally, Respiratory Effort: normal.?CARDIOVASCULAR:?Auscultation: regular rate and rhythm.?BREAST, Right:?BREAST, Left:?GASTROINTESTINAL:?MUSCULOSKELETAL:?SKIN:?NEURO/PSYCH:?Genitourinary: ?EXTERNAL GENITALIA:?VAGINA:?BLADDER:?URETHRA:?CERVIX:?UTERUS:?ADNEXA:?ANUS AND PERINEUM:? Assessment: * Assessment: 1.?Encounter for gynecologic al examination (general) (routine) without abnormal findings - Z01.419?2.?Encounter for screening mammogram for malignant neoplasm of breast - Z12.31?3.?Other specified disorders of bone density and structure, multiple sites - M85.89?4.?Dense breasts, unspecified - R92.30? Plan: * Treatment: 2.?Encounter for screening m ammogram for malignant neoplasm of breast?Imaging: MM Digital Mammo Screening Notes: REGULAR MAMMOGRAMS AND SBE'S WERE RECOMMENDED.?? 3.?Other specified disorders of bone density and structure, multiple sites? Notes: DISCUSSED HER LATEST BMD RESULTS AND OSTEOPENIA AND REASSURED PAT THAT THERE HAS NOT BEEN ANY SIGNIFICANT CHANGE COMPARED TO HER BMD IN 2020. ADEQUATE CALCIUM AND VITD. WEIGHT BEARING EXERCISES. REPEAT BMD IN 2025.?? 4.?Dense breasts, unspecifie d? Notes: DISCUSSED DENSE BREASTS ON MAMMOGRAM AND ITS IMPLICATIONS. 3D MAMMOGRAMS WERE RECOMMENDED.?? * Imaging:? * ?Imaging: MAMMOGRAM, SCR EENING * Procedure Codes:? * Preventive Medicine:? ??YOUR PREVENTIVE WELLNESS PLAN:?Osteoporosis prevention?Calcium, D, strength training.?Breast Cancer Screening (Mammogram):?annually.?Cervical Cancer Screening (Pap Smear):?q 3 years with HPV screen.?Colorectal Cancer Screening:?q 10 years.? * Follow Up:?1 Year * Images: Billing Information: * Visit Code:? 30504 Preventive Care Est Pt. Age 65 and over. * Procedure Codes:? * Sign off status: Completed true * Appointment Provider:?Nataly Armenta M.D. Date:?08/29/2023 Generated for Tyrone kulkarni/Kevon/Manuelaitting on:?09/30/2024 10:04 AM EST History and Physical Notes * HPI (History of Present Illness) Category Sub-Category Detail Notes Category Not es New/Follow-up Patient Consult PAT ENTERED MENOPAUSE IN 2004. SHE IS NOT SEXUALLY ACTIVE. HER SUFFERS FROM PROSTATE CA. HER LAST MAMMOGRAM DONE IN AUG 2023 SHOWED DENSE BREASTS AND WAS NORMAL. HER LIFETIME BREAST CA RISK IS 5.4%. HER LAST PAP TEST IN 2021 WAS NEGATIVE AND HPV NEGATIVE. HER LAST BMD IN 2023 SHOWED NO CHANGE COMPARED TO HER BMD IN 2020. HER LOWEST T-SCORE WAS -2.2 AT [facility]. FRAX=18%/1.8%. SHE HAD COLOGUARD TESTING DONE IN 2019. WE WILL REPEAT THE TEST THIS YEAR. MODERNA X 4. Annual General Health Maintenance: Current breast complaints:: no breast pain, mass, discharge, or skin changes Urinary problems:: patient r eports no urinary health problems or bowel health problems Calcium intake:: takes adequ ate calcium via diet and supplementation Significant SENIOR PRICING ANALYST problems:: n o significant pediatric dentist symptoms or problems Examination Category Sub-Category Detail Notes Category Not es General Exam CONSTITUTIONAL: General Appearan ce:: alert, in no acute distress, normal, well nourished NECK/THYROID: Thyroid:: normal size and shape Inspection/Palpation:: normal RESPIRATORY: Auscultation: clear to auscultation bilaterally, Respiratory Effort: normal CARDIOVASCULAR: Auscultation: regula r rate and rhythm GASTROINTESTINAL: Abdomen:: no masses, nontender , nondistended Liver and Spleen:: normal Hernias:: no hernias present, no inguina l adenopathy MUSCULOSKELETAL: Inspection/Palpation:: no clubb ing, cyanosis, or edema SKIN: Skin:: normal NEURO/PSYCH: Mood/Affect:: normal Orientation:: time , place, person BREAST, Right: Inspection/Palpation :: no discharge, no masses present, no nipple retraction, no skin changes, no skin dimpling, no tenderness, no lymphadenopathy, no axillary mass, no axillary tenderness BREAST, Left: Inspection/Palpation :: no discharge, no masses present, no nipple retraction, no skin changes, no skin dimpling, no tenderness, no lymphadenopathy, no axillary mass, no axillary tenderness Genitourinary EXTERNAL GENITALIA: External Genitalia:: nor mal, no lesions VAGINA: Vagina:: normal appearance, no a bnormal discharge, no lesions BLADDER: Bladder:: no mass, nontender URETHRA: Urethra:: no erythema or lesions present CERVIX: Cervix:: no lesions, nontender UTERUS: Uterus:: nontender, normal conto ur, normal mobility, normal size ADNEXA: Adnexa:: no masses, no tendernes s ANUS AND PERINEUM: Anus/Perineum:: visually norm al
--- OUTSIDE RECORDS SUMMARY | 2024-09-30 10:05 | XMS_ITS | Patient Health Record ---
Author Organization [facility] Address [address] [place] [address] Care Team Providers Care Egg Candler Name Role Phone CYRUS YOLI Primary Care Provider Nataly Coyle Unavailable [phone] Allergies No Known Allergies Reason For Referral No Information Medications Medication SIG (Take, Route, Frequency, Duration) [...] last smoked? Grea ter than 10 years Problems Problem Type SNOMED Code ICD Code Onset Dates Problem Status W/U Status Risk Notes Problem Postmenopausal atrophic vaginitis (77975591) Postmenopausal atrophic vaginitis (N95.2) Active confirmed Problem Screening for malignant neoplasm of breast (869090156) Encounter for screening mammogram for malignant neoplasm of breast (Z12.31) Active confirmed Problem Disorder of bone and articular cartilage (disorder) (693870488) Disorder of bone and cartilage, unspecified (733.90) Active confirmed Major Vital Signs Temperature 97.4 degrees Fahrenheit 09/02/2024 Blood pressure diastolic 72 mm Hg 09/02/2024 Height 63 in 09/02/2024 Blood pressure systolic 118 mm Hg 09/02/2024 Weight 136 lbs 09/02/2024 BMI 24.09 kg/m2 09/02/2024 Encounters Encounter Location Date Provider Diagnosis [address] [place] [address] 09/02/2024 Nataly Armenta Encounter for gynecological examination [...] 3D MAMMOGRAMS WERE RECOMMENDED. Plan Of Treatment Pending Test Test Name Order Date BONE DENSITY EXTREMITY 03/19/2019 MAMMOGRAM, SCREENING 08/18/2021 MAMMOGRAM, SCREENING 08/24/2022 MAMMOGRAM, SCREENING 08/29/2023 MAMMOGRAM, SCREENING 12/02/2014 Urinalysis 03/19/2019 Urinalysis 08/18/2021 Urinalysis 07/21/2020 THIN PREP,HPV,JULES IF HPV+ (>29YR)(DIAG) 03/19/2019 BONE DENSITY 07/21/2020 BONE DENSITY 08/24/2022 BONE DENSITY 09/02/2024 MM Digital Mammo Screening 09/02/2024 MM Digital Mammo Screening 08/29/2023 MM Digital Mammo Screening 08/18/2021 MM Digital Mammo Screening 08/24/2022 Next Appt Details Provider Name:Nataly summers, 09/03/2025 09:20:00 AM, [address], [address], [place], [address], Insurance Providers Payer Name Payer Address Payer Phone Subscriber Number Group Number Insured Name Patient Relationship to Insured Coverage Start Date Coverage End Date BCBS MEDICARE PPO [address] [place] [address] [id number] JASMINE DOW Self - patient is the insured Medical (General) History Medical History History ICD Code Disorder of bone density and structure, unspecified M85.9 Palpitations R00.2 Inconclusive mammogram R92.2 Postmenopausal atrophic vaginitis N95.2 Leiomyoma of uterus, unspecified D25.9 Unsatisfactory cytologic smear of cervix R87.615 Mammographic heterogeneous density, bila teral breasts R92.333 Other specified disorders of bone densit y and structure, multiple sites M85.89 Surgical History Surgery Date(Month/Year) Colonoscopy 2011 Hospitalization History Reason Date(Month/Year) 1 Vaginal Delivery
[2024-09-30 13:29] LABS: MANUAL DIFF FLAG NO
[2024-09-30 13:33] LABS: Basophils Absolute Auto 0.1 X10*3/uL (0.0-0.2); Basophils Percent Auto 0.8 % (0-2); Eosinophils Absolute Auto 0.2 X10*3/uL (0.0-0.4); Eosinophils Percent Auto 2.3 % (0-4); Hematocrit 42.9 % (37.0-47.0); Hemoglobin 14.7 g/dl (12.0-16.0); Imm Gran Abs Auto 0.01 X10*3/uL (0.00-0.03); Imm Gran Pct Auto 0.1 % (0.0-0.4); Lymphocytes Absolute Auto 1.8 X10*3/uL (1.2-4.9); Lymphocytes Percent Auto 24.3 % (20-40); Mean Corpuscular HGB Conc 34.3 g/dl (31.0-35.0); Mean Corpuscular Hemoglobin 33.9 pg (27.0-33.0); Mean Corpuscular Volume 98.8 fL (80.0-98.0); Mean Platelet Volume 11.5 fL (9.4-12.3); Monocytes Absolute Auto 0.6 X10*3/uL (0.1-1.2); Monocytes Percent Auto 8.3 % (2-11); Neutrophils Absolute Auto 4.8 x10*3/uL (2.0-8.3); Neutrophils Percent Auto 64.2 % (45-73); Platelet Count 257 X10*3/uL (160-400); Red Blood Count 4.34 X10*6/uL (4.20-5.50); Red Cell Distribution Width 11.5 % (11.0-16.0); White Blood Count 7.5 X10*3/uL (4.8-10.8)
[2024-09-30 14:03] LABS: Alanine Aminotransferase 22 U/L (0-31); Albumin Level 4.5 g/dL (3.5-5.0); Alkaline Phosphatase 53 U/L (39-117); Anion Gap 12 (12-20); Aspartate Amino Transferase 30 U/L (5-31); Bilirubin Total 0.6 mg/dL (0.0-1.0); Blood Urea Nitrogen 12 mg/dL (9-16); Calcium 10.1 mg/dL (8.4-10.2); Carbon Dioxide 28 mmol/L (22-29); Chloride 104 mmol/L (96-108); Cholesterol 221 mg/dL (<200); Estimated Glomerular Filt Rate > 60; Glucose Random 93 mg/dL (60-115); HDL Cholesterol 57 mg/dL (>40); LDL Cholesterol Calculated 147 mg/dL (<100); Potassium 4.2 mmol/L (3.3-5.1); Sodium 140 mmol/L (135-145); Total Protein 8.5 g/dL (6.5-8.0); Triglycerides 89 mg/dL (<150)
[2024-09-30 14:18] LABS: Thyroid Stimulating Hormone 1.84 uIU/mL (0.32-4.0)
[2024-09-30 14:45] LABS: T4 Thyroxine 6.4 ug/dL (4.5-12.0)
== END 2024-09-30 09:13 | disposition home or self-care (01) ==
LOC: HO.MANLDS 09:12
PROVIDERS: Visit Provider Internal Medicine
DX: E78.00 Pure hypercholesterolemia, unspecified (principal); I10 Essential (primary) hypertension; E03.9 Hypothyroidism, unspecified
CPT/HCPCS: 36415; 80053; 80061; 84436; 84443; 85025

== ENCOUNTER → 2024-10-01 08:42 | Outpatient (REF) | payer BC, SELFPAY ==
--- NOTE | 2024-10-01 08:49 | CA_ITS ---
Transthoracic Echocardiogram Patient (Last, First, Middle): Alta Castillo Carol Gender: Female Date of : 1955 Age: 69 Procedure Date: 10/01/2024 Procedure Type: Transthoracic Echocardiogram Location: OP Height: 160.02 cm Weight: 61.24 kg BSA: 1.64 m2 Heart Rate: 66 bpm BP: 120 / 70 mmHg Head Librarian: SB Referring MD: Buzz Barlow MD Symptoms: CARDIAC MURMUR R01.1 Study Quality: Adequate ECG Rhythm: Sinus Conclusions: - The left ventricular systolic function is normal. The calculated ejection fraction is 57% by biplane method. - No obvious valvular pathology seen on this study. Findings Left Ventricle Normal left ventricular cavity size. The left ventricular systolic function is normal. The calculated ejection fraction is 57% by biplane method. There is no evidence of regional wall motion abnormalities. Evidence suggests grade I (mild) diastolic dysfunction. There is mild septal and mild basal asymmetric hypertrophy. Right Ventricle Normal right ventricular cavity size and systolic function. Atria Both atria are normal in size. Aortic Valve There is a normal trileaflet aortic valve. There is no aortic valve stenosis. There is no aortic valve regurgitation. Mitral Valve The mitral valve appears normal. There is no mitral valve regurgitation. There is no mitral valve stenosis. Pulmonic Valve The pulmonic valve is likely normal. Tricuspid Valve There is trace tricuspid valve regurgitation. There is no evidence of pulmonary hypertension. Great Vessels The asc aorta is normal in size. Venous The inferior vena cava is normal in size and collapses greater than 50% with inspiration. Pericardium/Pleural There is no evidence of pericardial effusion. Prior Study Comparison No prior study available for comparison. Recommendations, Care & Conclusions No obvious valvular pathology seen on this study. Measurements 2D Linear Measurements IVSd: 0.70 0.6-0.9/0.6-1.0 cm LVIDd: 4.97 3.9-5.3/4.2-5.9 cm LVIDd Index: 3.03 2.4-3.2/2.2-3.1 cm/m2 LVIDs: 3.23 2.0-3.6 cm LVPWd: 0.61 0.7-1.1 cm LA Diam: 3.00 2.7-3.8/3.0-4.0 cm LAIDs Index: 1.83 1.5-2.3 cm/m2 LV Mass: 129.66 67-162/88-224 g LV Mass Index: 79.06 43-95/49-115 g/m2 LVOT Diam: 1.90 3.0+(-)1.3 cm 2D Systolic Function EF 4C: 58.00 >55% EF 2C: 56.20 >55% EF BiP: 57.20 >55% Mitral Valve MV Pk E: 0.59 MV PK A: 0.80 MV Decel Time: 224.00 E/A: 0.70 E'Lateral: 5.87 E'Medial: 4.46 E/E' Med: 13.30 E/E' Lat: 10.10 PHT: 66.00 MVA PHT: 3.33 Decel [place]: 2.65 Aortic Valve AoV Pk [place]: 1.26 AoV Pk Grad: 6.00 ADE: 2.49 LVOT LVOT Pk [place]: 1.13 LVOT Mn [place]: 0.74 LVOT VTI: 0.21 LVOT Pk Grad: 5.00 LVOT Mn Grad: 3.00 LVOT Diam: 1.90 LVOT Area: 2.84 Diastolic Function MV Pk E: 0.59 MV Pk A: 0.80 E/A: 0.70 E'Medial: 4.46 E/E' Med: 13.30 E' Laterial: 5.87 E/E' Lat: 10.10 Right Ventricle TAPSE (mm): 18.80 TVS' [place]: 13.50 Tricuspid Valve TR Pk [place]: 2.07 TR Pk Grad: 17.00 RA Press: 3.00 RVSP: 20.00 Great Vessels Aorta Sinus of Valsalva: 3.00 2.0-3.5 cm Ao Asc: 3.20 2.1-3.4 cm Pulmonary Valve PV Pk [place]: 0.82 Peak PV Grad: 3.00 Updated in Other Vendor System with Status of Final Peter Bustillo MD electronically signed on 10/01/2024 3:37:33 PM with status of Final
--- OUTSIDE RECORDS SUMMARY | 2024-10-01 09:21 | XMS_ITS ---
Author Organization [facility] Address [address] [address] Care Team Providers Care Electronics Processor Name Role Phone YOLI BRIDGES Primary Care Provider Nataly Coyle Unavailable [phone] Allergies No Known Allergies REASON FOR VISIT [...] 09/02/2024 Encounters Encounter Location Date [facility] [address] 09/02/2024 Nataly Armenta Encounter for gynecological examination [...] Follow Up: 1 Year, Reason: Provider Name:Nataly usmmers, 09/03/2025 09:20:00 AM, [address], [address], [place], [address], Progress Notes * JASMINE MCKEONDOB:[birth year] (69 yo F)Acc No.[id number]:09/02/2024 PROGRESS NOTES Patient:?KATIE MCKEON Appointment Provider:Yuri summers M.D. :1955???Age:69 Y???Sex:Female D ate:09/02/2024 Address:[address] [place], [place] [id number] Pcp:YOLI BRIDGES Subjective: * Chief Complaints: * [...] stool.?no?genitourinary complaints.?no?skin complaints.? * Medical History:? 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 Control:?None.?Menopause: ?Began at age: ?52 ???Colonoscopy?Cologuard 06/2020, yes, no polyps, 2011.?Bone Density:?08/14/23, 04/21/21, 05/08/17.?AIRLINE MANAGERIAL SUPERVISOR HISTORY MISC.?02/03/16 Dense Breast Letter 1 Mailed [...] discharge, no drainage, no masses palpable bilaterally, nontender.?AIRLINE MANAGERIAL SUPERVISOR exam: ?EXTERNAL GENITALIA:?Normal female. No lesions, erythema [...] Armenta M.D. Date:?09/02/2024 Generated for Tyrone kulkarni/Kevon/Manuelaitting on:?10/01/2024 09:20 AM EST History and Physical Notes * [...] General Examination GENERAL APPEARANCE: in no ac hughes distress, well developed, well nourished BREASTS: normal, no dimpling, no discharge, no drainage, no masses palpable bilaterally, nontender AIRLINE MANAGERIAL SUPERVISOR exam CERVIX: No cervical motion tendernes s, discharge or lesions VAGINA: atrophic changes EXTERNAL GENITALIA: Normal female. No le sions, erythema or discharge UTERUS: normal size, shape a nd consistency, normal mobility, nontender ADNEXA: no masses or tendern ess bilaterally
--- OUTSIDE RECORDS SUMMARY | 2024-10-01 09:21 | XMS_ITS | Patient Health Record ---
Author Organization [facility] Address [address] [place] [address] Care Team Providers Care Network Engineer Administrator Name Role Phone CYRUS YOLI Primary Care Provider Nataly Coyle Unavailable [phone] Allergies No Known Allergies Reason For Referral [...] Status Risk Notes Problem Postmenopausal atrophic vaginitis (87063501) Postmenopausal atrophic vaginitis (N95.2) Active confirmed Problem Screening for malignant neoplasm of breast (694276333) Encounter for screening mammogram for malignant neoplasm of breast (Z12.31) Active confirmed Problem Disorder of bone and articular cartilage (disorder) (778781227) Disorder of bone and cartilage, unspecified (733.90) Active confirmed Major Vital Signs Temperature 97.4 degrees Fahrenheit 09/02/2024 Blood pressure diastolic 72 mm Hg 09/02/2024 Height 63 in 09/02/2024 Blood pressure systolic 118 mm Hg 09/02/2024 Weight 136 lbs 09/02/2024 BMI 24.09 kg/m2 09/02/2024 Encounters Encounter Location Date Provider Diagnosis [address] [place] [address] 09/02/2024 Nataly Armenta Encounter for gynecological examination [...] Date BONE DENSITY EXTREMITY 03/19/2019 MAMMOGRAM, SCREENING 12/02/2014 MAMMOGRAM, SCREENING 08/18/2021 MAMMOGRAM, SCREENING 08/24/2022 MAMMOGRAM, SCREENING 08/29/2023 Urinalysis 08/18/2021 Urinalysis 07/21/2020 Urinalysis 03/19/2019 THIN PREP,HPV,JULES IF HPV+ (>29YR)(DIAG) 03/19/2019 BONE DENSITY 07/21/2020 BONE DENSITY 08/24/2022 BONE DENSITY 09/02/2024 MM Digital Mammo Screening 09/02/2024 MM Digital Mammo Screening 08/29/2023 MM Digital Mammo Screening 08/18/2021 MM Digital Mammo Screening 08/24/2022 Next Appt Details Provider Name:Nataly summers, 09/03/2025 09:20:00 AM, [address] [facility], [address], [place], [address], Insurance Providers Payer Name Payer Address Payer Phone Subscriber Number Group Number Insured Name Patient Relationship to Insured Coverage Start Date Coverage End Date BCBS MEDICARE PPO [address] [place] [address] [id number] JASMINE DOW Self - patient is the [...]
--- OUTSIDE RECORDS SUMMARY | 2024-10-01 09:21 | XMS_ITS ---
Author Organization [facility] Address [address] [place] [address] Care Team Providers Care Montessori Preschool Teacher Name Role Phone CYRUS YOLI Primary Care Provider Nataly Coyle Unavailable [phone] Allergies No Known Allergies REASON FOR VISIT Annual ALUMNI SECRETARY Physical, Annual ALUMNI SECRETARY Physical 60-85+ Medications Medication SIG (Take, Route, [...] 08/29/2023 Encounters Encounter Location Date Provider Diagnosis [facility] [address] [place] [address] 08/29/2023 Nataly Armenta Encounter for gynecological examination [...] 09:20:00 AM, [address], [address], [place], [address], Progress Notes * JASMINE MCKEONDOB:[birth year] (68 yo F)Acc No.[id number]:08/29/2023 PROGRESS NOTES Patient:?KATIE MCKEON Appointment Provider:?Nataly summers M.D. :1955???Age:68 Y???Sex:Female D ate:08/29/2023 Address:[address] [place], [place] [id number] Pcp:YOLI BRIDGES Subjective: * Chief Complaints: * ???Annual ALUMNI SECRETARY PhysicalAnnual ALUMNI SECRETARY Physical 60-85+ * HPI: ???New/Follow-up Patient Consult:? [...] adequate calcium via diet and supplementation ?Significant ALUMNI SECRETARY problems:?no significant tree topper symptoms or problems * ROS:?general:?no?chest pain.?no?palpitations.?no?headache.?no?cough.?no?shortness of breath.?no?fever.?no?unexplained weight loss.?no?nausea/vomiting.?no?change in bowel movements.?no blood in stool.?no?genitourinary complaints.?no?skin complaints.? * Medical History:? 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 Control:?None.?Menopause: ?Began at age: ?52 ???Colonoscopy?Cologuard 06/2020, yes, no polyps, 2011.?Bone Density:?04/21/21, 05/08/17.?ALUMNI SECRETARY HISTORY MISC.?02/03/16 Dense Breast Letter 1 Mailed [...] Temp: 97.9 F. * Examination: ???General Exam: ?CONSTITUTIONAL:?General Appearance:?alert, in no acute distress, normal, well nourished ?NECK/THYROID:?Inspection/Palpation:?normal ?Thyroid:?normal size and shape ?RESPIRATORY:?Auscultation: clear to auscultation bilaterally, Respiratory Effort: normal.?CARDIOVASCULAR:?Auscultation: regular rate and rhythm.?BREAST, Right:?Inspection/Palpation:?no discharge, no masses present, no nipple retraction, no skin changes, no skin dimpling, no tenderness, no lymphadenopathy, no axillary mass, no axillary tenderness ?BREAST, Left:?Inspection/Palpation:?no discharge, no masses present, no nipple retraction, no skin changes, no skin dimpling, no tenderness, no lymphadenopathy, no axillary mass, no axillary tenderness ?GASTROINTESTINAL:?Abdomen:?no masses, nontender, nondistended ?Liver and Spleen:?normal ?Hernias:?no hernias present, no inguinal adenopathy ?MUSCULOSKELETAL:?Inspection/Palpation:?no clubbing, cyanosis, or edema ?SKIN:?Skin:?normal ?NEURO/PSYCH:?Orientation:?time , place, person ?Mood/Affect:?normal?Genitourinary: ?EXTERNAL GENITALIA:?External Genitalia:?normal, no lesions ?VAGINA:?Vagina:?normal appearance, no abnormal discharge, no lesions ?BLADDER:?Bladder:?no mass, nontender ?URETHRA:?Urethra:?no erythema or lesions present ?CERVIX:?Cervix:?no lesions, nontender ?UTERUS:?Uterus:?nontender, normal contour, normal mobility, normal size ?ADNEXA:?Adnexa:?no masses, no tenderness ?ANUS AND PERINEUM:?Anus/Perineum:?visually normal??? Assessment: * Assessment: 1.?Encounter for gynecologic al [...] * Images: Billing Information: * Visit Code:? 57215 Preventive Care Est Pt. Age 65 and over. * Procedure Codes:? * Sign off status: Completed true * Appointment Provider:?Nataly Armenta M.D. Date:?08/29/2023 Generated for Tyrone kulkarni/Kevon/Manuelaitting on:?10/01/2024 09:20 AM [...] ate calcium via diet and supplementation Significant ALUMNI SECRETARY problems:: n o significant tree topper symptoms or problems Examination Category Sub-Category Detail Notes Category Not es General Exam CONSTITUTIONAL: General Appearan ce:: alert, in no acute distress, normal, well nourished NECK/THYROID: Thyroid:: normal size and shape Inspection/Palpation:: normal RESPIRATORY: Auscultation: clear to auscultation bilaterally, Respiratory Effort: normal CARDIOVASCULAR: Auscultation: regula r rate and rhythm GASTROINTESTINAL: Hernias:: no hernias present, no inguinal adenopathy Liver and Spleen:: normal Abdomen:: no masses, nontender, nondiste nded MUSCULOSKELETAL: Inspection/Palpation:: no clubb ing, cyanosis, or [...]
== END ==
LOC: HO.CARD 08:42
PROVIDERS: PCP Internal Medicine; Visit Provider Internal Medicine
DX: R01.1 Cardiac murmur, unspecified (principal)
CPT/HCPCS: 93306

== ENCOUNTER → 2024-10-01 08:49 | Outpatient (BNV) | payer BC, SELFPAY | PROVIDERS: PCP Internal Medicine; Visit Provider Internal Medicine | DX: I42.2 Other hypertrophic cardiomyopathy (principal) | CPT/HCPCS: 93306 ==

== ENCOUNTER 2025-06-26 07:36 | Outpatient (REF) | payer BC, SELFPAY ==
--- OUTSIDE RECORDS SUMMARY | 2025-06-26 07:40 | XMS_ITS | Patient Health Record ---
Author Organization [facility] Address [address] [place] [address] Care Team Providers Care Bundle Shaker Name Role Phone YOLI BRIDGES Primary Care Provider Nataly Coyle Unavailable [phone] Allergies No Known Allergies Reason For Referral No Information Medications Medication SIG (Take, Route, Frequency, Duration) Notes Start Date End Date Status Vitamin C Active LORazepam 0.5MG 1 ORAL as needed 11/06/2013 Active Metoprolol Succinate 50MG 1 ORAL daily; Duration: -3 09/21/2011 Active Social History Tobacco Use: [...] Status Risk Notes Problem Postmenopausal atrophic vaginitis (12269591) Postmenopausal atrophic vaginitis (N95.2) Active confirmed Problem Screening for malignant neoplasm of breast (458908680) Encounter for screening mammogram for malignant neoplasm of breast (Z12.31) Active confirmed Problem Disorder of bone and articular cartilage (disorder) (679516476) Disorder of bone and cartilage, unspecified (733.90) Active confirmed Major Vital Signs Temperature 97.4 degrees Fahrenheit 09/02/2024 Blood pressure diastolic 72 mm Hg 09/02/2024 Height 63 in 09/02/2024 Blood pressure systolic 118 mm Hg 09/02/2024 Weight 136 lbs 09/02/2024 BMI 24.09 kg/m2 09/02/2024 Encounters Encounter Location Date Provider Diagnosis [address] [place] [address] 09/02/2024 Nataly Armenta Encounter for gynecological examination [...] 09:20:00 AM, [address], [address], [place], [address], Insurance Providers Payer Name Payer Address Payer Phone Subscriber Number Group Number Insured Name Patient Relationship to Insured Coverage Start Date Coverage End Date BCBS MEDICARE PPO [address] [place] [address] [phone] [id number] JASMINE DOW Self - patient is the [...]
--- OUTSIDE RECORDS SUMMARY | 2025-06-26 07:40 | XMS_ITS | Encounter Summary ---
Author Organization [facility] Address [address] [place] [address] Phone Care Team Providers Care Garment Manufacturer Name Role Phone Buzz Barlow Primary Care Provider [phone] Encounter Details Date Type Department Care Team (Late st Contact Info) Description 09/21/2024 Procedure Pass Non-Invasive Cardiology [address] [place] [address] Social History Tobacco Use Types Packs/Day Years Used Date Smoking Tobacco: Former Cigarettes Q uit: 06/2020 Smokeless Tobacco: Never Education Answer Date Recorded Are you interested in more education? Not on erick e 12/01/2022 Are you concerned about learning? Not on file 12/01/2022 No 12/01/2022 No 12/01/2022 Digital Access Answer Date Recorded No 12/30/2022 No 12/30/2022 Reliable internet access at home? Not on file 12/30/2022 Device with a working camera? Not on file Intimate Partner Violence Answer Date R ecorded Are you denied basic needs s uch as food, clothing, or medical care? No 09/21/2024 In the past 12 months have y ou been in a relationship with a person who hurts, threatens, or tries to control you? No 09/21/2024 Are you denied basic needs s uch as food, clothing, or medical care? No 09/21/2024 In the past 12 months have y ou been in a relationship with a person who hurts, threatens, or tries to control you? No 09/21/2024 Comments Unknown Sex and Gender Information Value Date Recorded Sex Assigned at Female 09/21/2024 11:11 AM EST Legal Sex Female 9:53 PM EDT Gender Identity Female 09/21/2024 11:11 AM EST Sexual Orientation Not on file documented as of this encounter Functional Status * Calculated C-SSRS Risk Score (Lifetime/Recent) Answer Date of Assessment Author No Risk Indicated 09/21/2024 11:11 AM Judie Saini RN * [place] Suicide Severity Rating Scale (Screener/Recent Self-Report) Question Answer Date of Assessment Author 1. Wish to be (Past 1 Month) No 09/21/2024 11:11 AM Pretty Mayorga cie, RN 2. Non-Specific Active Suicidal Thoughts (Past 1 Month) No 09/21/2024 11:11 AM Pretty Mayorga cie, RN 6. Suicidal Behavior (Lifetime) No 09/21/2024 11:11 AM Pretty Mayorga cie, RN documented as of this encounter Plan of Treatment Not on file documented as of this encounter Visit Diagnoses Not on filedocumented in this encounter Care Teams Garment Manufacturer Relationship Specialty Start Date End Date Buzz Barlow DO [address] [place] [id number] [email or web address] PCP - General Internal Medicine 09/21/24 documented as of this encounter Additional Source Comments The information contained in this document represents components of the legal health record. It is not the complete legal health record.[facility]
--- OUTSIDE RECORDS SUMMARY | 2025-06-26 07:40 | XMS_ITS | Clinical Summary ---
Author Organization [facility] Address [email or web address] [place] [phone] Phone Care Team Providers Care Matchbook Assembler Name Role Phone Buzz Barlow Primary Care Provider [phone] Allergies No known active allergies Medications cholecalciferol , vitamin D3, (VITAMIN D3) 10 mcg (400 unit) capsule Vitamin D 1,000mg daily Active LORazepam (ATIVAN) 0.5 MG tablet lorazepam 0.5 mg tablet Active metoprolol tartrate (LOPRESSOR) 50 MG tablet metoprolol tartrate 50 mg tablet Active triamcinolone acetonide 0.025 % cream 1 Active Active Problems Problem Noted Date Diagnosed Date Hypertensive disorder 10/05/2017 Osteopenia 10/05/2017 Palpitations 10/05/2017 Tobacco user 10/05/2017 Immunizations Immunization Administration Dates Next Due COVID-19 (Pre-05/28) Moderna Vaccine, mRNA, PF 0 08/31/2020,08/03/2020 Influenza Quadrivalent MDCK Preservative Free IM 05/13/2018 Influenza Quadrivalent Preservative Free IM 12/2019 Influenza Quadrivalent w/ Preservative IM 2019 Influenza Trivalent Adjuvanted Preservative free IM 05/10/2018 Social History Tobacco Use Types Packs/Day Years Used Date Smoking Tobacco: Former Cigarettes Q uit: 06/2020 Smokeless Tobacco: Never Tobacco Cessation:Counseling Given: Not Answered Education Answer Date Recorded Are you interested [...] as food, clothing, or medical care? No 10/22/2024 In the past 12 months have y ou been in a relationship with a person who hurts, threatens, or tries to control you? No 10/22/2024 Are you denied basic needs s uch as food, clothing, or medical care? No 10/22/2024 In the past 12 months have y ou been in a relationship with a person who hurts, threatens, or tries to control you? No 10/22/2024 Comments Unknown Sex and Gender Information Value Date Recorded Sex Assigned at Female 09/21/2024 11:11 AM EST Legal Sex Female 9:53 PM EDT Gender Identity Female 09/21/2024 11:11 AM EST Sexual Orientation Not on file Last Filed Vital Signs Vital Sign Reading Time Taken Comments Blood Pressure 136/83 10/22/2024 9:15 PM EDT Pulse 65 10/22/2024 9:15 PM EDT Temperature 36.6 C (97.9 F) 10/22/2024 9:15 PM EDT Respiratory Rate 17 10/22/2024 9:15 PM EDT Oxygen Saturation 99% 10/22/2024 9:15 PM EDT Inhaled Oxygen Concentration - - Weight 61.2 kg (135 lb) 10/22/2024 5:32 PM EDT Height 160 cm (5' 3 ) 10/22/2024 5:32 PM EDT Body Mass Index 23.91 10/22/2024 5:32 PM EDT Plan of Treatment Health Maintenance Due Date Last Done Comments LIPID PANEL 1957 DEPRESSION SCREENING 1969 SMOKING Hx and SMOKELESS TOBACCO SCREENING 1970 HEPATITIS C SCREENING 1975 MAMMOGRAM 1997 COLONOSCOPY 2002 FIT TEST 2002 FOBT 2002 SIGMOIDOSCOPY 2002 VIRTUAL COLONOSCOPY 2002 PNEUMOCOCCAL VACCINES (50+ years) (1 of 1 - PCV) 2007 OSTEOPOROSIS SCREENING INITIAL (ONE-TIME) 2022 BLOOD PRESSURE 12/17/2024 06/19/2024 INFLUENZA VACCINE (#1) 2025 , 06/12/2023, 05/07/2022, Additional history exists COVID-19 VACCINE ( season) 2025 04/28/2024, 06/12/2023, 06/09/2022, Additional history exists COLOGUARD 09/03/2026 09/03/2023 COLORECTAL CANCER SCREENING 09/03/2026 RSV VACCINE (1 - 1-dose 75+ series) 01/23/2032 Adult Td,Tdap Booster 02/03/2032 02/02/2022 ZOSTER VACCINES Completed 01/31/2022, 05/09/2021 HEPATITIS A VACCINES Aged Out No long er eligible based on patient's age to complete this topic HIB VACCINES Aged Out No longer eligi ble based on patient's age to complete this topic MENINGOCOCCAL VACCINES (ACWY) Aged Out No longer eligible based on patient's age to complete this topic MENINGOCOCCAL VACCINES (B) Aged Out N o longer eligible based on patient's age to complete this topic Medical Devices Not on file Insurance [place] MEDICARE PPO BLUE REPLACEMENT [facility] MEDICARE PPO BLUE REPLACEMENT [place] [facility] MEDICARE PPO BLUE REPLACEMENT [facility] MEDICARE PPO BLUE REPLACEMENT Member Subscriber Plan / Payer (Ef fective 2022-Present) Name:Alta Castillo Relation to Subscriber:Self Name:Alta Castillo Payer ID:[id number] (NAIC) Type:Medicare Address: [address] [place], [place] [facility] [place] [facility] MEDICARE PPO BLUE REPLACEMENT [place] Care Teams Matchbook Assembler Relationship Specialty Start Date End Date Buzz Barlow DO [address] [place] [address] [email or web address] PCP - General Internal Medicine 09/21/24 Additional Source Comments The information contained in this document represents components of the legal health record. It is not the complete legal health record.[facility]
--- OUTSIDE RECORDS SUMMARY | 2025-06-26 07:40 | XMS_ITS ---
Author Name [facility] Organization Unknown Care Team Organization Name Specialty Phone Email Start Date End Da te [employer] Insurance 05/21/2022 0 03/24/2024
--- OUTSIDE RECORDS SUMMARY | 2025-06-26 07:40 | XMS_ITS | Data Portability ---
Author Organization [facility], Telehealth Patient Home Address [address] [place] [address] Assessment Encounter Date Assessment Date Assessment LastModified by Organization Details LastModified Time 01/13/2022 01/13/2022 [id number] [place] [id number] (UPPER AND BOTTOM LACER HAND) MDM MODERATE MUST MEET 2 OUT OF [...] COVERED Not available 01/13/2022 15:39:57 01/07/2024 01/07/2024 [id number] [place] [address] (UPPER AND BOTTOM LACER HAND) : MDM LOW MUST MEET 2 OF [...] COVERED Not available 01/07/2024 14:47:15 08/04/2024 08/04/2024 [address] [place] [address] (UPPER AND BOTTOM LACER HAND) MDM MODERATE MUST MEET 2 OUT OF [...] COVERED Not available 08/04/2024 13:40:53 09/08/2024 09/08/2024 [address] [place] [address] (UPPER AND BOTTOM LACER HAND) MDM MODERATE MUST MEET 2 OUT OF [...] acic, complete, w/ color flow 2024 025 [facility] Central Scheduling, [address], [place], [address], 09/26/2024 10:07:10 Medication Orders halobetas ol propionat e 0.05 % topical cream [address] [facility]Pharmacy #[id number], [address] [place], [address], 08/04/2024 13:40:13 metoprolo l succinate ER 50 mg tablet,ex tended release [address] [facility]/Pharmacy #5, [address] [place], [address], 01/07/2024 14:50:31 Patient TargetsNo targets recorded. Patient Instructions Encounter Date Encounter Id Patient Instructions Last Modified By Organization Details Last Modified Time 01/13/2022 [id number] smoking cessatio n counseling, greater than 3 minutes up to 10 minutes* [email or web address] Not available 01/23/2022 09:13:25 History: Type of tobacco: How many years? Packs per day: Approx date of last quit attempt: Medication used in previous quit attempt: Readiness to Quit: Assessment and Plan: Educational materials provided: Counseled for second hand smoke Counseling notes: Counseling: Counseled for: Not available 01/13/2022 15:44:26 01/07/2024 [id number] palpitations: care instructions Not available 01/07/2024 14:47:48 Reason for Referral None Reported. Results Created Date Observation Date Name Description Value Unit Range Abnormal Flag Note LastModifiedBy Organization Detail LastModifiedTime 01/14/2001/13/2022 MAMMO , scree vinayak, digit al, bilat eral No observ ation record ed. BARCODE Not Available 2021 15:22:41 10/01/19 25 10/01/2024 US, echoc ardio gram, trans thora cic, compl ete, w/ color flow No observ ation record ed. [facility] (Medical Records) [address] [place], [address], 10/02/2024 21:40:21 Result Notes None recorded. Problems Name Problem SNOMED Code Status Onset Date Resolution Date Notes Provider Name and Address Organization Details Recorded Time Osteopenia 375115330 Active 2017 Not Available [facility] 3 12:35:23 Hypertensi ve disorder 15913923 Active 2017 Not Available [facility] 3 12:35:23 Palpitatio ns 17140044 Active 2017 Not Available [facility] 3 12:35:23 Tobacco user 121048511 Active 2017 Not Available [facility] 3 12:35:23 Anxiety 25959323 Active 2020 Not Available [facility] 3 12:35:23 Weight loss 35224136 Active 2021 Not Available [facility] 3 12:35:23 Eczema 67027173 Active 2023 Buzz Bridges, DO [address] [place] [address], [address], [facility] 4 13:38:38 Early systolic murmur 86045958 Active 2024 Buzz Bridges, DO [address] [place] [address], [address], [facility] 5 11:40:24 Intermitte nt palpitatio ns 808697523 Active 2024 Buzz Bridges, DO [address] [place] [address], [address], [facility] 5 22:36:48 Problem Notes None recorded. Medical Equipment None Reported. Allergies No known drug allergies Medications Name Sig Start Date Stop Date Status Note LastModified by Organization Details LastModified Time amoxicillin 500 mg capsule 02/10 completed Not Available Not Available Not Available metoprolol succinate ER 50 mg tablet,exte nded release 24 hr TAKE 1 TABLET BY MOUTH EVERY DAY 2024 active Not Available Not Available Not Avai lable alclometaso ne 0.05 % topical cream APPLY TO AFFECTED AREAS ON FACE TWICE A DAY FOR 2 WEEKS. active Not Available Not Available No t Available lorazepam 0.5 mg tablet TAKE 1 TABLET BY MOUTH EVERY DAY NEEDED 2024 active Not Available Not Available Not Avai lable triamcinolo ne acetonide 0.025 % topical cream [...] (BMI) Body weight Heart rate Oxygen saturation Systolic And Diastolic Provider Name and Address Organization Details Last Updated DateTime 5 160.02 cm 25.6 kg/m2 91618.7 4 g 65 /min 98 % 122/66 mm[Hg] [facility] 5 10:57:39 Date Recorded Body height Body mass index (BMI) Body weight Heart rate Oxygen saturation Systolic And Diastolic Provider Name and Address Organization Details Last Updated DateTime 3 160.02 cm 24.4 kg/m2 73389.6 7 g 61 /min 99 % 122/78 mm[Hg] Buzz Bridges, DO [address] [place], [address], [facility] 3 15:49:24 Date Recorded Body weight Heart rate Oxygen saturation Systolic And Diastolic Provider Name and Address Organization Details Last Updated DateTime 01/07/2024 93608.29 g 74 /min 96 % 120/80 mm[Hg] Betty Kam [facility] 01/07/2024 14:31:27 Date Recorded Body height Heart rate Oxygen saturation Body mass index (BMI) Body weight Systolic And Diastolic Provider Name and Address Organization Details Last Updated DateTime 2 160.02 cm 67 /min 99 % 23.4 kg/m2 74892.9 1 g 122/84 mm[Hg] Buzz Bridges DO [address] [place], [address], [facility] 2 15:08:30 Date Recorded Body height Body mass index (BMI) Body weight Heart rate Oxygen saturation Systolic And Diastolic Provider Name and Address Organization Details Last Updated DateTime 4 160.02 cm 25.5 kg/m2 86515.3 g 67 /min 99 % 128/82 mm[Hg] Washington Costa [facility] 4 13:29:46 Social History Question Answer Notes LastModified by Organizat ion Details LastModified Time Tobacco Smoking Status Former Smoker 4-5 ciggs per day Buzz BridgesDO [address] [place] [address], [address], [facility] 05/31/2021 16:28:01 What Was The Date Of Your Most Recent Tobacco Screening? 09/08/2024 [email or web address] Information not available 09/08/2024 Sex: Unknown Functional Status Question Answer Note LastModified by Organization D etails LastModified Time Do you or have you ever used any other forms of tobacco or nicotine? No Information not available 11/08/2022 Mental Status None recorded. Family History Nothing Reported. Medical History No medical history recorded. Gynecological HistoryNo gynecological history recorded. Obstetrics History GPAL:G 0 P 0 0 0 0 Immunizations Vaccine Type Date Status Note Provider Nam e and Address Organization Details Recorded Time Influenza, split virus, quadrivalent, preservative 1 completed Buzz Bridges DO [address] [place], [address], [facility] 05/31/2021 16:27:05 zoster, unspecified formulation 1 completed Buzz Bridges DO [address] [place], [address], [facility] 05/31/2021 16:27:27 Influenza, adjuvanted, trivalent, PF 8 completed Karmen Smith [facility] 05/24/2018 16:46:46 influenza, unspecified formulation 3 completed Hina Murray [facility] 06/18/2023 09:04:40 SARS-COV-2 (COVID-19) vaccine, UNSPECIFIED 3 completed Hina Murray [facility] 06/18/2023 09:04:47 influenza, unspecified formulation 5 completed Betty Humphrey [facility] 05/20/2025 13:33:59 SARS-COV-2 (COVID-19) vaccine, UNSPECIFIED 5 completed Betty Humphrey [facility] 05/20/2025 13:34:07 Influenza, split virus, quadrivalent, preservative 0 [facility] 16:18:10 COVID-19, mRNA, LNP-S, PF, 100 mcg/0.5mL dose or 50 mcg/0.25mL dose 1 [facility]14[facility] 14:42:48 COVID-19, mRNA, LNP-S, PF, 100 mcg/0.5mL dose or 50 mcg/0.25mL dose 1 [facility]/2020 14:42:56 Past Encounters Encounter ID Performer Location Encounter Start Date Encounter Closed Date Diagnosis/Indication Diagnosis SNOMED-CT Code Diagnosis ICD10 Code Diagnosis IMO Codes Diagnosis Note [id number] [facility] [address] [facility],[place] [address] [facility] [place] [address] 11/16/2017 13:29:14 11/16/2017 16:01:22 Hypertensive disorder 30349678 I10 stable overall doing well no major problems bps at home and work are good Tobacco user 907732399 Z 72.0 long discussion re tobacco use Osteopenia 071472249 M85 .9 coming up bone density in january 40635638 F41.[id number] [facility] [address] [facility] [address] 05/24/2018 16:17:34 05/27/2018 10:29:39 Tobacco user 712774373 Z72.0 long discussion re tobacco use Hypertensive disorder 38 839335 I10 stable overall doing well no major problems bps at home and work are good Upper resp iratory infection 59459045 J06.9 use tessalon [id number] [facility] [address] [facility],[place] [address] 02/10/2019 16:10:54 02/10/2019 17:19:27 Hypertensive disorder 94062516 I10 stable overall doing well no major problems bps at home and work are good will order some lab next visit Tobacco user 911783798 Z 72.0 long discussion re tobacco use not interested in quittin [id number] [facility] [address] [facility] [address],[place] [address] 09/16/2019 16:05:41 09/16/2019 16:41:26 Hypertensive disorder 42498381 I10 BP is well controlled w metoprolol Screening for malignant neoplasm of colon 272926515 Z12.11 Is due - will call them and see if she needs referral Insomnia 122066593 F51.0 9 Well controlled with loraz less than 1x/mo [id number] [facility] [address] [facility] [address],[place] [address] 06/21/2020 16:07:12 06/22/2020 08:59:03 Hypertensive disorder 92448326 I10 BP is well controlled w metoprolol Insomnia 714509261 F51.0 9 Well controlled with loraz less than 1x/mo Osteopenia 919661421 M85 .9 coming up bone density in january of 2021 cont vit d Screening for malignant neoplasm of colon 607719179 Z12.11 Is due - [id number] [facility] [address] [facility], [place] [address] 05/31/2021 16:07:14 05/31/2021 16:52:24 Hypertensive disorder 28838057 I10 BP is well controlled w metoprolol Anxiety 83103794 F41.9 uses lorazepam occasional ly Insomnia 342831420 F51.0 9 Well controlled with loraz less than 1x/mo [id number] [facility] [address] [facility], [place] [address] 01/13/2022 14:59:10 01/13/2022 17:02:48 Hypertensive disorder 85115093 I10 BP is well controlled w metoprolol Tobacco user 549002974 Z 72.0 long discussion re tobacco use not interested in quittin Anxiety 68791815 F41.9 uses lorazepam occasional ly but overall she is doing much better Active or passive immunization 603204015 Z23 patient advised she is due for tdap & shingles will get second [id number] [facility] [address] [facility] [place] [place] [facility] [place] [address] 11/08/2022 15:17:57 11/08/2022 16:59:49 Hypertensive disorder 16735459 I10 BP is well controlled w metoprolol Active or passive immunization 447976294 Z23 patient advised she is due for tdap & shingles will get second Adult heal th examination 334682232 Z00.[id number] [facility] [address] [facility] [place] [facility] [place] [address] 01/07/2024 14:18:13 01/07/2024 14:57:47 Depression screening 781555160 Z13.31 PHQ9 NEGATIVE Hypertensive disorder 38 415634 I10 BP is well controlled w metoprolol Osteopenia 590037104 M85 .9 coming up bone density in january of 2021 cont vit d Palpitations 78309360 R0 0.2 asympt[place] [id number] [address] [facility] [address] [facility],[place] [address] 08/04/2024 13:23:18 08/04/2024 13:46:54 Hypertensive disorder 12391482 I10 BP is well controlled w metoprolol Eczema 58147669 L30.9 on fingers [id number] Buzz Bridges [facility] [address] [facility] [address],[place] [address] 09/08/2024 10:51:24 09/08/2024 11:54:40 Hypertensive disorder 66482932 I10 BP is well controlled w metoprolol Early systolic murmur 89 665748 R01.1 Health Concerns Section Related Observation LastModified by Organization Detai ls LastModified Time None Recorded Concern Status LastModified by Organization Details LastModified Time None Recorded Advance Directives Directive None Recorded Payers Insurance Date Sequence Insurance Name Policy Number Policy Moffett Covered Member ID Moffett Member ID Guarantor Name 08/04/2024 1 [facility] [id number] [facility] [id number] [facility] 09/06/2024 1 [facility]: MEDICARE PPO BLUE (MEDICARE REPLACEMENT PPO) [id number] [facility] [id number] [facility] 08/04/2024 1 [facility] [id number] [facility] [id number] [facility] 08/04/2024 1 [facility] (PPO) [id number] [facility] [id number] [facility] Notes Date Note Type Note Provider Name and Address Organization Details Recorded Time 2 text/htm l Hypertension F/UReported by PatientHPIFor medications, patient reportstaking medications as directedandno side effects from medication. For lifestyle, patient reportsregular exercise,limiting/avoidi ng salt, andcompliant with low salt diet. For associated symptoms, patient reportsno dizziness,no lightheadedness,no chest pain,no shortness of breath,no palpitations,no edema,no calf pain with exertion, andno headache.ROS as noted in the HPI here for rechk and is feeling well and not having any cp or sobsstill quit the tobacco and is sleeping okappetite okno cp \no prob with med Buzz BishopBarry Bridges DO [address] [place] [address], [address], [facility] 01/13/2022 15:44:59 3 text/htm l Annual WellnessReported by PatientSocial/Behavioral HistoryFor diet and nutrition, patient reportshealthy diet. For fracture risk, patient reportsno history of fractures,no recent explained fracture,no sudden unexplained fractures, andno previous musculoskeletal injuries. For physical activity, patient reportsexercises on a regular basis,recent increase in physical activity, andgood physical condition. For additional lifestyle factors, patient reportsno tobacco use,no alcohol intake, andstopped drinking alcohol.Mental Status:For depression risk, patient reportsnever feels sad, empty, or tearful,no loss of interest in activities,no significant changes in weight,no sleep disturbances or insomnia,no agitation,no loss of energy,no feelings of worthlessness or guilt,no thoughts of suicide,no history of depression, andno history of mood disorders.Functional AbilityFor hearing, patient reportsno loss of hearing. For vision, patient reportsno vision problems.doing well overall no major issuesbowels okbladder okno cp nosobappetite ok 'sleepROS as noted in the HPI Buzz EdnaBarry Bridges DO [address] [place], [address], [facility] 11/08/2022 16:30:52 4 text/htm l Care Management - HypertensionReported by PatientHPIFor self care, patient reportsnot under emotional stress. For severity, patient reportssymptoms are improvinganddoes not interfere with daily activities. For associated symptoms, patient reportsno dizziness,no lightheadedness,no chest pain,no shortness of breath,no palpitations,no edema,no calf muscle cramps,no blurred vision,no confusion,no headaches, andno fatigue.walking daily with the dogROS as noted in the HPI here for her med chk and relates that she is doing well and feels good except for right foot plantar fasciitisusing insertno palpitations no cp no sob bowelsbladder goodhas had recent manifest clerk exam all good bone density shows osteopinia and mammogram was negative taking ca with vit D Buzz Bridges DO [address] [place], [address], [facility] 01/07/2024 14:52:21 4 text/htm l Care Management - HypertensionReported by PatientHPIFor self care, patient reportsnot under emotional stress. For severity, patient reportssymptoms are improvinganddoes not interfere with daily activities. For associated symptoms, patient reportsno dizziness,no lightheadedness,no chest pain,no shortness of breath,no palpitations,no edema,no calf muscle cramps,no blurred vision,no confusion,no headaches, andno fatigue.ROS as noted in the HPI here for rechk and is doing good no major issues and has been having a prob with a rash on fingers of hands itchy scaly and uncomfortable Buzz Bridges DO [address] [place], [address], [facility] 08/04/2024 13:45:20 5 text/htm l ROS as noted in the HPI was told by manifest clerk that she had a systolic heart murmur and told her that it could lead to heart failure etc pt nervous about thisdoes not have any hemodynamic physical signs or symptomsno cp no sob Buzz Bridges DO [address] [place], [address], [facility] 09/08/2024 11:45:53 OBGyn Episode No OBEpisode recorded.
[2025-06-26 14:01] LABS: MANUAL DIFF FLAG NO
[2025-06-26 14:14] LABS: Hematocrit 42.7 % (37.0-47.0); Hemoglobin 14.2 g/dl (12.0-16.0); Imm Gran Abs Auto 0.01 X10*3/uL (0.00-0.03); Imm Gran Pct Auto 0.2 % (0.0-0.4); Lymphocytes Absolute Auto 1.6 X10*3/uL (1.2-4.9); Mean Corpuscular HGB Conc 33.3 g/dl (31.0-35.0); Mean Corpuscular Hemoglobin 32.2 pg (27.0-33.0); Mean Corpuscular Volume 96.8 fL (80.0-98.0); NRBC Abs Auto 0.000 X10*3/uL (0.0-0.012); NRBC Pct Auto 0.0 /100WBC (0.0-0.2); Platelet Count 253 X10*3/uL (160-400); Red Blood Count 4.41 X10*6/uL (4.20-5.50); White Blood Count 6.4 X10*3/uL (4.8-10.8)
[2025-06-26 14:42] LABS: Alanine Aminotransferase 36 U/L (0-31); Albumin Level 4.7 g/dL (3.5-5.0); Alkaline Phosphatase 66 U/L (39-117); Anion Gap 8 (12-20); Aspartate Amino Transferase 34 U/L (5-31); Blood Urea Nitrogen 17 mg/dL (9-16); Calcium 9.7 mg/dL (8.4-10.2); Carbon Dioxide 31 mmol/L (22-29); Chloride 105 mmol/L (96-108); Cholesterol 130 mg/dL (<200); Estimated Glomerular Filt Rate 58; HDL Cholesterol 44 mg/dL (>40); Potassium 4.2 mmol/L (3.3-5.1); Sodium 140 mmol/L (135-145); Total Protein 7.9 g/dL (6.5-8.0); Triglycerides 109 mg/dL (<150)
== END 2025-06-26 07:37 | disposition home or self-care (01) ==
LOC: HO.MANLDS 07:36
PROVIDERS: Visit Provider Internal Medicine
DX: I10 Essential (primary) hypertension (principal); Z13.21 Encounter for screening for nutritional disorder
CPT/HCPCS: 36415; 80053; 80061; 82306; 84443; 85025